=== PATIENT | male | born 1970 | race Caucasian/White ===

== ENCOUNTER 2020-03-21 14:14 | Inpatient (IN) | payer MEDICAID, OTHER ==
[~2020-03-21] VITALS: Ht 170.2 cm; Wt 112.0 kg
[2020-03-21] MEDS ORDERED: CHLO25TA2 PO (14:20)
[2020-03-21 15:13] LABS: CHLORIDE 77 mEq/L (98-107)
[2020-03-21 15:17] LABS: ETHANOL BLOOD < 10 mg/dL
[2020-03-21 15:23] LABS: BASOPHILS % 0.7 % (0.0-2.0); EOSINOPHILS % 0.8 % (0.0-5.0); LYMPHOCYTES % 9.8 % (20.0-50.0); MEAN CORPUSCULAR HEMOGLOBIN 31.6 pg (28.0-32.0); MEAN CORPUSCULAR VOLUME 91.6 fL (80.0-94.0); MEAN PLATELET VOLUME 7.4 fl (7.4-10.4); MONOCYTES % 14.3 % (2.0-8.0); NEUTROPHILS % 74.4 % (40.0-76.0); PLATELET 153 x1000/uL (130-400); RED BLOOD CELL COUNT 3.49 mill/uL (4.7-6.1); RED CELL DISTRIBUTION WIDTH 14.3 % (11.6-14.6)
[2020-03-21 15:26] LABS: INR 1.5; PROTHROMBIN TIME 15.8 sec (9.6-11.0)
[2020-03-21] MEDS ORDERED: SODIUM CHLORIDE 0.9% 1,000 ML IV ONE (15:30)
[2020-03-21] MEDS ORDERED: ONDANSETRON HCL 4MG/2ML INJ IV PRN (18:30)
[2020-03-21] MEDS ORDERED: MORPHINE SULFATE 2 MG/ML CPJ (NOT FOR IM USE) IV PRN (18:30)
[2020-03-21] MEDS ORDERED: LORAZEPAM 2MG/ML CPJ IV PRN (18:30)
[2020-03-21] MEDS ORDERED: HYDRALAZINE 20MG/ML VIAL IV PRN (18:30)
[2020-03-21] MEDS ORDERED: DIPHENHYDRAMINE 50MG/ML VIAL IV PRN (18:30)
[2020-03-21] MEDS ORDERED: GUAIFENESIN 200MG/10ML SUGAR FREE UDC PO PRN (18:30)
[2020-03-21] MEDS ORDERED: ACETAMINOPHEN 325MG TABLET PO PRN (18:30)
[2020-03-21] MEDS ORDERED: HYDROCODONE/ACETAMINOPHEN 10/325MG TABLET PO PRN (18:30)
[2020-03-21] MEDS ORDERED: MAGNESIUM/ALUMINUM HYDROXIDE/SIMETHICONE 30ML UDC PO PRN (18:30)
[2020-03-21] MEDS ORDERED: IPRATROPIUM/ALBUTEROL 0.5-3(2.5)MG/3ML NEB HHN PRN (18:30)
[2020-03-21] MEDS ORDERED: CLONIDINE 0.1MG TABLET PO PRN (18:30)
[2020-03-21] MEDS ORDERED: DOCUSATE SODIUM 100MG CAPSULE PO PRN (18:30)
[2020-03-21] MEDS ORDERED: POTASSIUM CHLORIDE INJ 40 MEQ in DEXT 5% WATER 250 ML IV ONE (20:00)
[2020-03-21 20:01] LABS: HEPATITIS B SURFACE ANTIGEN NEGATIVE
[2020-03-21] MEDS: SODIUM CHLORIDE 0.9% 1,000 ML IV SCH (20:09)
[2020-03-21 20:31] LABS: HEPATITIS A AB IGM NEGATIVE (NEGATIVE)
[2020-03-21] MEDS: SODIUM CHLORIDE 0.9% INJ 3ML FLUSH IVF SCH (22:00)
[2020-03-22] MEDS ORDERED: KCL 20MEQ/100ML PREMIX 100 ML IV ONE
[2020-03-22 00:20] LABS: CREATINE KINASE 172 IU/L (39-308)
[2020-03-22 00:21] LABS: CREATINE KINASE MB FRACTION 2.8 ng/mL (0.5-3.6)
[2020-03-22 04:38] LABS: CHLORIDE 81 mEq/L (98-107); HEMATOCRIT. 31.8 % (42.0-52.0); HEMOGLOBIN. 10.7 g/dL (14.0-18.0); MEAN CORPUSCULAR HEMOGLOBIN 31.2 pg (28.0-32.0); MEAN CORPUSCULAR VOLUME 92.8 fL (80.0-94.0); MEAN PLATELET VOLUME 7.4 fl (7.4-10.4); PLATELET 131 x1000/uL (130-400); RED BLOOD CELL COUNT 3.43 mill/uL (4.7-6.1); RED CELL DISTRIBUTION WIDTH 14.2 % (11.6-14.6)
[2020-03-22 04:45] LABS: CREATINE KINASE 169 IU/L (39-308)
[2020-03-22 04:47] LABS: CREATINE KINASE MB FRACTION 2.4 ng/mL (0.5-3.6)
[2020-03-22] MEDS: SODIUM CHLORIDE 0.9% INJ 3ML FLUSH IVF SCH ×3 (06:04→22:00)
[2020-03-22] MEDS ORDERED: POTASSIUM CHLORIDE INJ 40 MEQ in SODIUM CHLORIDE 0.9% 250 ML IV NR (06:30)
[2020-03-22 07:21] LABS: PLATELET ESTIMATE NORMAL
[2020-03-22] MEDS ORDERED: LIDOCAINE HCL 1% 20ML VIAL (Pyxis) INJ ONE (07:57)
[2020-03-22] MEDS ORDERED: SODIUM BICARBONATE 4% (2.4MEQ) 5ML VIAL IV ONE (07:57)
[2020-03-22 10:10] VITALS: BP 128/71
[2020-03-22 10:15] VITALS: BP 128/71
[2020-03-22] MEDS ORDERED: ZINC25CA PO (11:44)
[2020-03-22 12:00] VITALS: BP 136/70
[2020-03-22 13:02] LABS: CHLORIDE 83 mEq/L (98-107)
[2020-03-22] MEDS: SODIUM CHLORIDE 0.9% 1,000 ML IV SCH (13:41)
[2020-03-22 16:00] VITALS: BP 108/56
[2020-03-22 20:00] VITALS: BP 108/51
[2020-03-23] VITALS: BP 131/74
[2020-03-23 04:00] VITALS: BP 124/76
[2020-03-23] MEDS: SODIUM CHLORIDE 0.9% INJ 3ML FLUSH IVF SCH ×3 (05:55→16:06)
[2020-03-23 07:17] LABS: BASOPHILS % 1.3 % (0.0-2.0); EOSINOPHILS % 1.1 % (0.0-5.0); HEMATOCRIT. 30.3 % (42.0-52.0); HEMOGLOBIN. 10.5 g/dL (14.0-18.0); LYMPHOCYTES % 13.3 % (20.0-50.0); MEAN CORPUSCULAR HEMOGLOBIN 31.7 pg (28.0-32.0); MEAN CORPUSCULAR VOLUME 91.5 fL (80.0-94.0); MONOCYTES % 14.5 % (2.0-8.0); NEUTROPHILS % 69.8 % (40.0-76.0); PLATELET 111 x1000/uL (130-400); RED BLOOD CELL COUNT 3.31 mill/uL (4.7-6.1); RED CELL DISTRIBUTION WIDTH 14.1 % (11.6-14.6)
[2020-03-23 08:00] VITALS: BP 129/74
[2020-03-23 08:06] LABS: CHLORIDE 85 mEq/L (98-107)
[2020-03-23 08:15] LABS: PHOSPHORUS 1.3 mg/dL (2.5-4.9)
[2020-03-23] MEDS: LACTULOSE 20G/30ML UDC PO SCH ×3 (10:45→17:00)
[2020-03-23] MEDS ORDERED: POTASSIUM CHLORIDE 20MEQ TABLET SR PO SCH (11:45)
[2020-03-23 12:00] VITALS: BP 133/81
[2020-03-23] MEDS: SODIUM CHLORIDE 0.9% 1,000 ML IV SCH (12:00)
[2020-03-23 16:00] VITALS: BP 128/81
[2020-03-23 20:00] VITALS: BP 133/73
[2020-03-24] VITALS: BP 112/76
[2020-03-24 04:00] VITALS: BP 113/72
[2020-03-24] MEDS: SODIUM CHLORIDE 0.9% INJ 3ML FLUSH IVF SCH ×2 (06:20→14:23)
[2020-03-24 08:00] VITALS: BP 137/85
[2020-03-24] MEDS: SODIUM CHLORIDE 0.9% 1,000 ML IV SCH (11:08)
[2020-03-24] MEDS: LACTULOSE 20G/30ML UDC PO SCH ×3 (11:13→17:00)
[2020-03-24 12:00] VITALS: BP 143/88
[2020-03-24 18:14] VITALS: BP 117/80
== END 2020-03-24 19:10 | disposition home or self-care (01) | DRG 280 ==
LOC: EDBD → ER 14:14 → 6WST 17:25 → EDBEDREQTM 17:32 → ENRESERV 03-22 07:53
PROVIDERS: ADMIT Internal Medicine; ATTEND Internal Medicine
PROC: 0W9G3ZZ Drainage of Peritoneal Cavity, Percutaneous Approach (ICD-10-PCS; principal; 2020-03-22)
DX: K70.31 Alcoholic cirrhosis of liver with ascites (principal); K72.90 Hepatic failure, unspecified without coma; D68.9 Coagulation defect, unspecified; E46 Unspecified protein-calorie malnutrition; D64.9 Anemia, unspecified; E87.1 Hypo-osmolality and hyponatremia; E87.6 Hypokalemia; I10 Essential (primary) hypertension; I25.10 Atherosclerotic heart disease of native coronary artery without angina pectoris; K21.9 Gastro-esophageal reflux disease without esophagitis; Z79.899 Other long term (current) drug therapy; Z68.28 Body mass index [BMI] 28.0-28.9, adult; Z71.41 Alcohol abuse counseling and surveillance of alcoholic; Y90.9 Presence of alcohol in blood, level not specified; F10.20 Alcohol dependence, uncomplicated
CPT/HCPCS: 36415; 49083; 74176; 80048; 80053; 80076; 80320; 82105; 82140; 82550; 82553; 82607; 82746; 83615; 83735; 84100; 84484; 85025; 86705; 86709; 86803; 87075; 87340; 93005; 93970; 99285; J2270; J2405; J3480; J3490; J7030; J7050; J7060; G0480

== ENCOUNTER 2020-04-13 13:59 | Inpatient (IN) | payer MEDICAID, OTHER ==
[~2020-04-13] VITALS: Ht 170.2 cm; Wt 103.0 kg
[~2020-04-13 13:59] MED LIST: CHLO25TA2 PO; ZINC25CA PO
[2020-04-13] MEDS ORDERED: ACETAMINOPHEN 325MG TABLET PO ONE (14:30)
[2020-04-13] MEDS ORDERED: LIDOCAINE HCL/PF 1% 10 MG/ML 5ML VIAL IJ ONE (14:30)
[2020-04-13] MEDS ORDERED: VANCOMYCIN 1 G PREMIX 200 ML IV SCH (14:30)
[2020-04-13] MEDS ORDERED: PIPERACILLIN/TAZ 3.375G PREMIX 50 ML IV ONE (14:30)
[2020-04-13 15:19] LABS: BASOPHILS % 0.4 % (0.0-2.0); HEMATOCRIT. 33.8 % (42.0-52.0); HEMOGLOBIN. 11.6 g/dL (14.0-18.0); LYMPHOCYTES % 10.1 % (20.0-50.0); MEAN CORPUSCULAR HEMOGLOBIN 30.7 pg (28.0-32.0); MEAN PLATELET VOLUME 7.5 fl (7.4-10.4); MONOCYTES % 5.8 % (2.0-8.0); NEUTROPHILS % 83.7 % (40.0-76.0); PLATELET 223 x1000/uL (130-400); RED BLOOD CELL COUNT 3.76 mill/uL (4.7-6.1); RED CELL DISTRIBUTION WIDTH 16.2 % (11.6-14.6)
[2020-04-13 15:22] LABS: CHLORIDE 96 mEq/L (98-107); INR 1.3; PARTIAL THROMBOPLASTIN TIME 33.6 sec (23.4-31.0); PROTHROMBIN TIME 14.4 sec (9.6-11.0)
[2020-04-13] MEDS ORDERED: MORPHINE SULFATE 4 MG/ML CPJ (NOT FOR IM USE) IV STA (15:53)
[2020-04-13] MEDS ORDERED: ONDANSETRON HCL 4MG/2ML INJ IV STA (15:53)
[2020-04-13 18:20] VITALS: BP 152/90
[2020-04-13] MEDS ORDERED: MULT-1146 MT (19:00)
[2020-04-13] MEDS ORDERED: LACT10SO30 MT (19:00)
[2020-04-13] MEDS ORDERED: THIA100T88 PO (19:00)
[2020-04-13 20:00] VITALS: BP 143/97
[2020-04-13 20:10] VITALS: BP 159/89
[2020-04-13] MEDS ORDERED: MORPHINE SULFATE 2 MG/ML CPJ (NOT FOR IM USE) IV PRN (21:15)
[2020-04-13] MEDS ORDERED: ONDANSETRON HCL 4MG/2ML INJ IV PRN (21:15)
[2020-04-13] MEDS ORDERED: DEXT 5%/0.45% NACL 1000ML 1,000 ML IV SCH (22:30)
[2020-04-14] VITALS: BP 127/98
[2020-04-14 04:00] VITALS: BP 134/91
[2020-04-14 06:42] LABS: INR 1.4; PROTHROMBIN TIME 15.4 sec (9.6-11.0)
[2020-04-14 06:45] LABS: BASOPHILS % 0.6 % (0.0-2.0); EOSINOPHILS % 1.2 % (0.0-5.0); HEMOGLOBIN. 10.6 g/dL (14.0-18.0); LYMPHOCYTES % 13.9 % (20.0-50.0); MEAN CORPUSCULAR HEMOGLOBIN 30.6 pg (28.0-32.0); MEAN CORPUSCULAR VOLUME 89.5 fL (80.0-94.0); MEAN PLATELET VOLUME 7.7 fl (7.4-10.4); MONOCYTES % 13.5 % (2.0-8.0); NEUTROPHILS % 70.8 % (40.0-76.0); PLATELET 173 x1000/uL (130-400); RED BLOOD CELL COUNT 3.47 mill/uL (4.7-6.1)
[2020-04-14 08:00] VITALS: BP 128/85
[2020-04-14 08:20] LABS: CHLORIDE 97 mEq/L (98-107)
[2020-04-14] MEDS: PANTOPRAZOLE SODIUM 40 MG/VIAL IV SCH (08:29)
[2020-04-14 12:00] VITALS: BP 143/89
[2020-04-14] MEDS: POTASSIUM CHLORIDE 20MEQ TABLET SR PO SCH (12:02)
[2020-04-14] MEDS: PIPERACILLIN/TAZOBACTAM 3.375 G in DEXT 5% WATER 100 ML IV SCH ×2 (13:35→17:22)
[2020-04-14 14:55] LABS: *AMPHETAMINES SCREEN URINE NEGATIVE (NEGATIVE); *BARBITURATES SCREEN URINE NEGATIVE (NEGATIVE); *BENZODIAZEPINES SCREEN URINE NEGATIVE (NEGATIVE); *COCAINE SCREEN URINE NEGATIVE (NEGATIVE); METHADONE URINE SCREEN NEGATIVE (NEGATIVE)
[2020-04-14 14:56] LABS: CANNABINOID URINE SCREEN NEGATIVE (NEGATIVE); OPIATES URINE SCREEN PRESUMTIVE POSITIVE (NEGATIVE); PHENCYCLIDINE URINE SCREEN NEGATIVE (NEGATIVE)
[2020-04-14 16:00] VITALS: BP 146/95
[2020-04-14 20:00] VITALS: BP 133/83
[2020-04-15] VITALS: BP 142/86
[2020-04-15] MEDS: PIPERACILLIN/TAZOBACTAM 3.375 G in DEXT 5% WATER 100 ML IV SCH ×5 (00:36→23:00)
[2020-04-15 04:00] VITALS: BP 122/64
[2020-04-15 04:52] LABS: CLARITY URINE CLEAR (CLEAR); COLOR URINE DARK YELLOW (YELLOW); KETONES URINE NEGATIVE (NEGATIVE); LEUKOCYTE ESTERASE URINE TRACE (NEGATIVE); NITRITE URINE NEGATIVE (NEGATIVE); OCCULT BLOOD URINE 1+ (NEGATIVE); PROTEIN URINE TRACE (NEGATIVE); SPECIFIC GRAVITY URINE 1.027 (1.005-1.030)
[2020-04-15 08:00] VITALS: BP 127/85
[2020-04-15] MEDS: POTASSIUM CHLORIDE 20MEQ TABLET SR PO SCH (08:24)
[2020-04-15] MEDS: PANTOPRAZOLE SODIUM 40 MG/VIAL IV SCH (08:24)
[2020-04-15 12:00] VITALS: BP 132/89
[2020-04-15 16:00] VITALS: BP 141/85
[2020-04-15] MEDS: LACTULOSE 20G/30ML UDC PO SCH (17:12)
[2020-04-16] VITALS: BP 117/76
[2020-04-16 03:44] VITALS: BP 144/93
[2020-04-16] MEDS: PIPERACILLIN/TAZOBACTAM 3.375 G in DEXT 5% WATER 100 ML IV SCH ×3 (05:47→18:00)
[2020-04-16 08:00] VITALS: BP 124/81
[2020-04-16] MEDS: POTASSIUM CHLORIDE 20MEQ TABLET SR PO SCH (08:55)
[2020-04-16] MEDS: PANTOPRAZOLE SODIUM 40 MG/VIAL IV SCH (08:55)
[2020-04-16] MEDS: LACTULOSE 20G/30ML UDC PO SCH ×2 (08:59→17:00)
[2020-04-16] MEDS ORDERED: SODIUM BICARBONATE 4% (2.4MEQ) 5ML VIAL IV ONE (11:00)
[2020-04-16] MEDS ORDERED: LIDOCAINE HCL 1% 20ML VIAL (Pyxis) INJ ONE (11:00)
[2020-04-16 12:00] VITALS: BP 121/75
[2020-04-16 13:26] LABS: INR 1.3
[2020-04-16 16:00] VITALS: BP 128/82
[2020-04-16 20:00] VITALS: BP 120/75
[2020-04-17] VITALS: BP 125/72
[2020-04-17] MEDS: PIPERACILLIN/TAZOBACTAM 3.375 G in DEXT 5% WATER 100 ML IV SCH ×2 (00:45→06:07)
[2020-04-17 04:00] VITALS: BP 127/70
[2020-04-17 06:46] LABS: HEMATOCRIT. 30.8 % (42.0-52.0); HEMOGLOBIN. 10.6 g/dL (14.0-18.0); MEAN CORPUSCULAR HEMOGLOBIN 30.6 pg (28.0-32.0); MEAN CORPUSCULAR VOLUME 89.2 fL (80.0-94.0); MEAN PLATELET VOLUME 7.4 fl (7.4-10.4); PLATELET 174 x1000/uL (130-400); RED BLOOD CELL COUNT 3.45 mill/uL (4.7-6.1); RED CELL DISTRIBUTION WIDTH 15.8 % (11.6-14.6)
[2020-04-17 06:53] LABS: CHLORIDE 99 mEq/L (98-107)
[2020-04-17 08:00] VITALS: BP 123/75
[2020-04-17] MEDS: PANTOPRAZOLE SODIUM 40 MG/VIAL IV SCH (08:59)
[2020-04-17] MEDS: POTASSIUM CHLORIDE 20MEQ TABLET SR PO SCH (08:59)
[2020-04-17] MEDS: LACTULOSE 20G/30ML UDC PO SCH (09:05)
[2020-04-17 11:33] VITALS: BP 128/82
[2020-04-17 12:00] VITALS: BP 125/82
[2020-04-17 12:40] LABS: PLATELET ESTIMATE NORMAL
== END 2020-04-17 13:07 | disposition home or self-care (01) | DRG 280 ==
LOC: EDBD → ER 13:59 → EDBEDREQ 16:04 → EDBEDREQTM 16:04 → ENRESERV 16:48 → 7EST 17:38 → 6WST 04-16 03:13
PROVIDERS: ADMIT Hospitalist; ATTEND Hospitalist
PROC: 0W9G3ZZ Drainage of Peritoneal Cavity, Percutaneous Approach (ICD-10-PCS; principal; 2020-04-16)
DX: K70.31 Alcoholic cirrhosis of liver with ascites (principal); J96.00 Acute respiratory failure, unspecified whether with hypoxia or hypercapnia; E43 Unspecified severe protein-calorie malnutrition; D68.4 Acquired coagulation factor deficiency; E87.2 Acidosis; I10 Essential (primary) hypertension; Z20.828 Contact with and (suspected) exposure to other viral communicable diseases; E87.6 Hypokalemia; E87.1 Hypo-osmolality and hyponatremia; J98.11 Atelectasis; E88.09 Other disorders of plasma-protein metabolism, not elsewhere classified; K21.9 Gastro-esophageal reflux disease without esophagitis; D64.9 Anemia, unspecified; F10.10 Alcohol abuse, uncomplicated; Z60.2 Problems related to living alone
CPT/HCPCS: 36415; 49083; 71045; 80048; 80053; 80305; 80361; 81003; 82140; 82693; 83605; 83880; 84145; 84484; 85025; 93005; 96365; 99291; C9113; J2270; J2405; J2543; J3370; J3490; J7060; U0003-CS

== ENCOUNTER 2020-04-28 08:51 | Emergency (ER) | payer MEDICAID ==
[~2020-04-28] VITALS: Ht 170.2 cm; Wt 101.8 kg
[~2020-04-28 08:51] MED LIST changes: -CHLO25TA2 PO; +LACT10SO30 MT; +MULT-1146 MT; +THIA100T88 PO; -ZINC25CA PO
[2020-04-28 10:39] LABS: BASOPHILS % 1.2 % (0.0-2.0); HEMATOCRIT. 30.7 % (42.0-52.0); HEMOGLOBIN. 10.8 g/dL (14.0-18.0); LYMPHOCYTES % 25.2 % (20.0-50.0); MEAN CORPUSCULAR HEMOGLOBIN 31.4 pg (28.0-32.0); MEAN CORPUSCULAR VOLUME 89.2 fL (80.0-94.0); MEAN PLATELET VOLUME 7.4 fl (7.4-10.4); MONOCYTES % 11.6 % (2.0-8.0); PLATELET 184 x1000/uL (130-400); RED BLOOD CELL COUNT 3.44 mill/uL (4.7-6.1); RED CELL DISTRIBUTION WIDTH 17.7 % (11.6-14.6)
[2020-04-28 10:46] LABS: CHLORIDE 99 mEq/L (98-107)
[2020-04-28 10:47] LABS: INR 1.2; PROTHROMBIN TIME 13.2 sec (9.6-11.0)
[2020-04-28 10:50] LABS: ETHANOL BLOOD < 10 mg/dL
[2020-04-28] MEDS ORDERED: LIDOCAINE HCL 1% 20ML VIAL (Pyxis) INJ ONE (11:40)
[2020-04-28] MEDS ORDERED: SODIUM BICARBONATE 4% (2.4MEQ) 5ML VIAL IV ONE (11:40)
[2020-04-28] MEDS ORDERED: CEFTRIAXONE 2 G in DEXTROSE 5% WATER 50 ML IV NR (15:00)
[2020-04-28] MEDS ORDERED: CEFTRIAXONE 2 G PREMIX 50 ML IV ONE (15:00)
[2020-04-28 15:30] VITALS: BP 121/67
== END 2020-04-28 16:40 | disposition home or self-care (01) ==
LOC: ER 12:17
DX: K70.31 Alcoholic cirrhosis of liver with ascites (principal); R06.82 Tachypnea, not elsewhere classified; K21.9 Gastro-esophageal reflux disease without esophagitis; I10 Essential (primary) hypertension; Z87.891 Personal history of nicotine dependence
CPT/HCPCS: 36415; 49083; 71045; 80053; 80320; 83690; 83880; 84484; 85025; 85610; 86850; 86900; 86901; 93005; 96365; 99285; J0696; J3490; J7060; Z7610; G0480

== ENCOUNTER 2020-05-06 06:49 | Emergency (ER) | payer MEDICAID ==
[~2020-05-06] VITALS: Ht 167.6 cm; Wt 98.4 kg
[2020-05-06] MEDS ORDERED: SODIUM CHLORIDE 0.9% 1,000 ML IV ONE (08:12)
[2020-05-06 08:47] LABS: EOSINOPHILS % 1.5 % (0.0-5.0); HEMATOCRIT. 32.1 % (42.0-52.0); HEMOGLOBIN. 11.1 g/dL (14.0-18.0); LYMPHOCYTES % 25.9 % (20.0-50.0); MEAN CORPUSCULAR HEMOGLOBIN 30.8 pg (28.0-32.0); MEAN CORPUSCULAR VOLUME 89.2 fL (80.0-94.0); MEAN PLATELET VOLUME 7.4 fl (7.4-10.4); NEUTROPHILS % 59.6 % (40.0-76.0); PLATELET 168 x1000/uL (130-400); RED CELL DISTRIBUTION WIDTH 18.4 % (11.6-14.6)
[2020-05-06 08:52] LABS: INR 1.2; PARTIAL THROMBOPLASTIN TIME 31.7 sec (23.4-31.0); PROTHROMBIN TIME 12.9 sec (9.6-11.0)
[2020-05-06 09:23] LABS: CHLORIDE 95 mEq/L (98-107)
[2020-05-06] MEDS ORDERED: LIDOCAINE HCL 1% 20ML VIAL (Pyxis) INJ ONE (10:22)
[2020-05-06] MEDS ORDERED: SODIUM BICARBONATE 4% (2.4MEQ) 5ML VIAL IV ONE (10:22)
[2020-05-06 12:58] VITALS: BP 113/66
== END 2020-05-06 13:05 | disposition home or self-care (01) ==
LOC: ER 06:49
DX: R14.0 Abdominal distension (gaseous) (principal); K21.9 Gastro-esophageal reflux disease without esophagitis; R94.31 Abnormal electrocardiogram [ECG] [EKG]; I10 Essential (primary) hypertension; Z79.899 Other long term (current) drug therapy; K72.90 Hepatic failure, unspecified without coma; Z76.0 Encounter for issue of repeat prescription
CPT/HCPCS: 36415; 49083; 71045; 80053; 85025; 85610; 85730; 93005; 99285; J3490; J7030; Z7610

== ENCOUNTER 2020-05-14 13:34 | Emergency (ER) | payer MEDICAID ==
[~2020-05-14] VITALS: Ht 170.2 cm; Wt 92.0 kg
[2020-05-14] MEDS ORDERED: SODIUM BICARBONATE 4% (2.4MEQ) 5ML VIAL IV ONE (14:58)
[2020-05-14] MEDS ORDERED: LIDOCAINE HCL 1% 20ML VIAL (Pyxis) INJ ONE (14:58)
[2020-05-14 15:15] LABS: BASOPHILS % 0.6 % (0.0-2.0); EOSINOPHILS % 1.1 % (0.0-5.0); HEMATOCRIT. 32.9 % (42.0-52.0); HEMOGLOBIN. 11.6 g/dL (14.0-18.0); LYMPHOCYTES % 19.9 % (20.0-50.0); MEAN CORPUSCULAR HEMOGLOBIN 32.1 pg (28.0-32.0); MEAN CORPUSCULAR VOLUME 90.9 fL (80.0-94.0); MEAN PLATELET VOLUME 7.6 fl (7.4-10.4); MONOCYTES % 13.3 % (2.0-8.0); NEUTROPHILS % 65.1 % (40.0-76.0); PLATELET 145 x1000/uL (130-400); RED BLOOD CELL COUNT 3.62 mill/uL (4.7-6.1); RED CELL DISTRIBUTION WIDTH 18.3 % (11.6-14.6)
[2020-05-14 15:21] LABS: CHLORIDE 94 mEq/L (98-107)
[2020-05-14 15:23] LABS: INR 1.2; PROTHROMBIN TIME 12.6 sec (9.6-11.0)
[2020-05-14 18:39] VITALS: BP 111/67
== END 2020-05-14 19:13 | disposition home or self-care (01) ==
LOC: ER 13:34
DX: R18.8 Other ascites (principal); K70.9 Alcoholic liver disease, unspecified; E87.8 Other disorders of electrolyte and fluid balance, not elsewhere classified; I10 Essential (primary) hypertension; K21.9 Gastro-esophageal reflux disease without esophagitis
CPT/HCPCS: 36415; 49083; 80053; 85025; 85610; 99284; J3490; Z7610

== ENCOUNTER 2020-05-21 07:54 | Emergency (ER) | payer MEDICAID ==
[~2020-05-21] VITALS: Ht 172.7 cm; Wt 75.0 kg
[2020-05-21 08:44] VITALS: BP 149/86
[2020-05-21 09:07] LABS: BASOPHILS % 0.9 % (0.0-2.0); EOSINOPHILS % 1.7 % (0.0-5.0); HEMATOCRIT. 34.4 % (42.0-52.0); HEMOGLOBIN. 11.9 g/dL (14.0-18.0); LYMPHOCYTES % 25.6 % (20.0-50.0); MEAN CORPUSCULAR HEMOGLOBIN 31.7 pg (28.0-32.0); MEAN CORPUSCULAR VOLUME 91.3 fL (80.0-94.0); MEAN PLATELET VOLUME 7.7 fl (7.4-10.4); MONOCYTES % 11.9 % (2.0-8.0); NEUTROPHILS % 59.9 % (40.0-76.0); PLATELET 148 x1000/uL (130-400); RED BLOOD CELL COUNT 3.77 mill/uL (4.7-6.1); RED CELL DISTRIBUTION WIDTH 17.6 % (11.6-14.6)
[2020-05-21 09:13] LABS: CHLORIDE 95 mEq/L (98-107)
[2020-05-21 09:20] LABS: INR 1.2; PROTHROMBIN TIME 12.4 sec (9.6-11.0)
[2020-05-21] MEDS ORDERED: LIDOCAINE HCL 1% 20ML VIAL (Pyxis) INJ ONE (09:57)
[2020-05-21] MEDS ORDERED: SODIUM BICARBONATE 4% (2.4MEQ) 5ML VIAL IV ONE (09:57)
== END 2020-05-21 12:24 | disposition home or self-care (01) ==
LOC: ER 07:54
DX: R18.8 Other ascites (principal); K21.9 Gastro-esophageal reflux disease without esophagitis; I10 Essential (primary) hypertension; K76.9 Liver disease, unspecified; F17.200 Nicotine dependence, unspecified, uncomplicated
CPT/HCPCS: 36415; 49083; 80053; 83690; 85025; 85610; 87070; 87075; 87205; 89050; 99285; J3490; Z7610

== ENCOUNTER 2020-05-28 07:35 | Emergency (ER) | payer MEDICAID ==
[~2020-05-28] VITALS: Ht 172.7 cm; Wt 88.0 kg
[2020-05-28 08:27] LABS: BASOPHILS % 0.9 % (0.0-2.0); EOSINOPHILS % 1.4 % (0.0-5.0); HEMATOCRIT. 33.6 % (42.0-52.0); HEMOGLOBIN. 11.6 g/dL (14.0-18.0); LYMPHOCYTES % 22.6 % (20.0-50.0); MEAN CORPUSCULAR HEMOGLOBIN 31.6 pg (28.0-32.0); MEAN CORPUSCULAR VOLUME 91.5 fL (80.0-94.0); MEAN PLATELET VOLUME 7.9 fl (7.4-10.4); MONOCYTES % 11.4 % (2.0-8.0); NEUTROPHILS % 63.7 % (40.0-76.0); PLATELET 156 x1000/uL (130-400); RED BLOOD CELL COUNT 3.67 mill/uL (4.7-6.1); RED CELL DISTRIBUTION WIDTH 16.3 % (11.6-14.6)
[2020-05-28 08:40] LABS: INR 1.1; PROTHROMBIN TIME 11.9 sec (9.6-11.0)
[2020-05-28 08:42] LABS: CHLORIDE 95 mEq/L (98-107)
[2020-05-28] MEDS ORDERED: LIDOCAINE HCL 1% 20ML VIAL (Pyxis) INJ ONE (12:00)
[2020-05-28] MEDS ORDERED: SODIUM BICARBONATE 4% (2.4MEQ) 5ML VIAL IV ONE (12:00)
[2020-05-28 15:56] VITALS: BP 110/69
== END 2020-05-28 15:59 | disposition home or self-care (01) ==
LOC: ER 07:35
DX: R18.8 Other ascites (principal); K21.9 Gastro-esophageal reflux disease without esophagitis; I12.9 Hypertensive chronic kidney disease with stage 1 through stage 4 chronic kidney disease, or unspecified chronic kidney disease; N18.9 Chronic kidney disease, unspecified
CPT/HCPCS: 36415; 49083; 80053; 83690; 85025; 85610; 87070; 87075; 87205; 89050; 99285; J3490; Z7610

== ENCOUNTER 2020-06-05 07:20 | Emergency (ER) | payer MEDICAID ==
[~2020-06-05] VITALS: Ht 172.7 cm; Wt 86.8 kg
[2020-06-05 08:47] LABS: CHLORIDE 97 mEq/L (98-107); HEMATOCRIT. 31.6 % (42.0-52.0); MEAN CORPUSCULAR VOLUME 91.7 fL (80.0-94.0); MEAN PLATELET VOLUME 7.4 fl (7.4-10.4); PLATELET 132 x1000/uL (130-400); RED BLOOD CELL COUNT 3.45 mill/uL (4.7-6.1); RED CELL DISTRIBUTION WIDTH 15.6 % (11.6-14.6)
[2020-06-05 08:54] LABS: INR 1.2; PROTHROMBIN TIME 12.3 sec (9.6-11.0)
[2020-06-05 09:19] LABS: PLATELET ESTIMATE NORMAL
[2020-06-05] MEDS ORDERED: LIDOCAINE HCL 1% 20ML VIAL (Pyxis) INJ ONE (10:55)
[2020-06-05] MEDS ORDERED: SODIUM BICARBONATE 4% (2.4MEQ) 5ML VIAL IV ONE (10:56)
[2020-06-05 13:00] VITALS: BP 138/71
== END 2020-06-05 13:24 | disposition home or self-care (01) ==
LOC: ER 07:20
DX: R18.8 Other ascites (principal); K74.60 Unspecified cirrhosis of liver; K21.9 Gastro-esophageal reflux disease without esophagitis; I10 Essential (primary) hypertension
CPT/HCPCS: 36415; 49083; 80053; 85025; 85610; 99285; J3490; Z7610

== ENCOUNTER 2020-06-12 08:02 | Emergency (ER) | payer MEDICAID ==
[~2020-06-12] VITALS: Ht 170.2 cm; Wt 83.0 kg
[2020-06-12] MEDS ORDERED: METOCLOPRAMIDE HCL 10MG TABLET PO ONE (09:00)
[2020-06-12] MEDS ORDERED: IBUPROFEN 600MG TABLET PO ONE (09:00)
[2020-06-12 09:17] LABS: BASOPHILS % 1.1 % (0.0-2.0); EOSINOPHILS % 0.9 % (0.0-5.0); HEMATOCRIT. 33.5 % (42.0-52.0); HEMOGLOBIN. 11.7 g/dL (14.0-18.0); LYMPHOCYTES % 21.5 % (20.0-50.0); MEAN CORPUSCULAR HEMOGLOBIN 31.9 pg (28.0-32.0); MEAN CORPUSCULAR VOLUME 91.4 fL (80.0-94.0); MEAN PLATELET VOLUME 7.4 fl (7.4-10.4); MONOCYTES % 12.6 % (2.0-8.0); NEUTROPHILS % 63.9 % (40.0-76.0); PLATELET 141 x1000/uL (130-400); RED BLOOD CELL COUNT 3.67 mill/uL (4.7-6.1); RED CELL DISTRIBUTION WIDTH 14.8 % (11.6-14.6)
[2020-06-12 09:22] LABS: CHLORIDE 97 mEq/L (98-107)
[2020-06-12 09:26] LABS: INR 1.1; PROTHROMBIN TIME 11.8 sec (9.6-11.0)
[2020-06-12] MEDS ORDERED: LIDOCAINE HCL 1% 20ML VIAL (Pyxis) INJ ONE (09:40)
[2020-06-12] MEDS ORDERED: SODIUM BICARBONATE 4% (2.4MEQ) 5ML VIAL IV ONE (09:40)
[2020-06-12 11:46] VITALS: BP 120/86
== END 2020-06-12 12:15 | disposition home or self-care (01) ==
LOC: ER 08:02
DX: R18.8 Other ascites (principal); Z76.0 Encounter for issue of repeat prescription; I10 Essential (primary) hypertension; Z86.19 Personal history of other infectious and parasitic diseases
CPT/HCPCS: 36415; 49083; 80053; 83690; 85025; 85610; 87070; 87075; 87205; 89050; 93005; 99285; J3490; Z7610

== ENCOUNTER 2020-06-19 07:32 | Emergency (ER) | payer MEDICAID ==
[~2020-06-19] VITALS: Ht 170.2 cm; Wt 85.0 kg
[2020-06-19 08:19] LABS: INR 1.1; PARTIAL THROMBOPLASTIN TIME 31.3 sec (23.4-31.0); PROTHROMBIN TIME 11.9 sec (9.6-11.0)
[2020-06-19 08:23] LABS: BASOPHILS % 0.7 % (0.0-2.0); EOSINOPHILS % 1.2 % (0.0-5.0); HEMATOCRIT. 35.5 % (42.0-52.0); HEMOGLOBIN. 12.3 g/dL (14.0-18.0); LYMPHOCYTES % 21.8 % (20.0-50.0); MEAN CORPUSCULAR HEMOGLOBIN 31.5 pg (28.0-32.0); MEAN PLATELET VOLUME 7.7 fl (7.4-10.4); NEUTROPHILS % 64.3 % (40.0-76.0); PLATELET 174 x1000/uL (130-400); RED CELL DISTRIBUTION WIDTH 14.4 % (11.6-14.6)
[2020-06-19] MEDS ORDERED: SODIUM BICARBONATE 4% (2.4MEQ) 5ML VIAL IV ONE (09:09)
[2020-06-19] MEDS ORDERED: LIDOCAINE HCL 1% 20ML VIAL (Pyxis) INJ ONE (09:09)
[2020-06-19 11:00] VITALS: BP 106/63
== END 2020-06-19 11:53 | disposition home or self-care (01) ==
LOC: ER 07:32
DX: R18.8 Other ascites (principal); K74.60 Unspecified cirrhosis of liver; I10 Essential (primary) hypertension
CPT/HCPCS: 36415; 49083; 85025; 85610; 85730; 99285; J3490; Z7610

== ENCOUNTER 2020-07-03 07:41 | Emergency (ER) | payer MEDICAID ==
[~2020-07-03] VITALS: Ht 170.2 cm; Wt 77.0 kg
[2020-07-03 08:44] LABS: BASOPHILS % 0.8 % (0.0-2.0); EOSINOPHILS % 1.4 % (0.0-5.0); HEMATOCRIT. 34.7 % (42.0-52.0); LYMPHOCYTES % 19.7 % (20.0-50.0); MEAN CORPUSCULAR HEMOGLOBIN 31.1 pg (28.0-32.0); MEAN CORPUSCULAR VOLUME 89.8 fL (80.0-94.0); MEAN PLATELET VOLUME 7.4 fl (7.4-10.4); MONOCYTES % 10.9 % (2.0-8.0); NEUTROPHILS % 67.2 % (40.0-76.0); PLATELET 138 x1000/uL (130-400); RED BLOOD CELL COUNT 3.86 mill/uL (4.7-6.1); RED CELL DISTRIBUTION WIDTH 13.9 % (11.6-14.6)
[2020-07-03 08:50] LABS: CHLORIDE 93 mEq/L (98-107)
[2020-07-03 08:56] LABS: INR 1.1; PROTHROMBIN TIME 11.8 sec (9.6-11.0)
[2020-07-03 11:50] VITALS: BP 110/80
[2020-07-03] MEDS ORDERED: LIDOCAINE HCL 1% 20ML VIAL (Pyxis) INJ ONE (13:08)
== END 2020-07-03 12:04 | disposition home or self-care (01) ==
LOC: ER 07:41
DX: R18.8 Other ascites (principal); I10 Essential (primary) hypertension; K74.60 Unspecified cirrhosis of liver
CPT/HCPCS: 36415; 49083; 80053; 85025; 85610; 99285; J3490; Z7610

== ENCOUNTER 2020-07-11 07:47 | Emergency (ER) | payer MEDICAID ==
[~2020-07-11] VITALS: Ht 170.2 cm; Wt 83.8 kg
[2020-07-11] MEDS ORDERED: CHLO50TA PO (08:01)
[2020-07-11 09:17] LABS: INR 1.1; PARTIAL THROMBOPLASTIN TIME 29.9 sec (23.4-31.0); PROTHROMBIN TIME 11.8 sec (9.6-11.0)
[2020-07-11 10:03] LABS: HEMATOCRIT 33.3 % (42.0-52.0); HEMOGLOBIN 11.5 g/dL (14.0-18.0); MEAN CORPUSCULAR HEMOGLOBIN 30.9 pg (28.0-32.0); MEAN CORPUSCULAR VOLUME 89.4 fL (80.0-94.0); PLATELET 134 x1000/uL (130-400); RED BLOOD CELL COUNT 3.73 mill/uL (4.7-6.1)
[2020-07-11] MEDS ORDERED: SODIUM BICARBONATE 4% (2.4MEQ) 5ML VIAL IV ONE (10:12)
[2020-07-11] MEDS ORDERED: LIDOCAINE HCL 1% 20ML VIAL (Pyxis) INJ ONE (10:12)
[2020-07-11 14:00] VITALS: BP 109/57
== END 2020-07-11 13:50 | disposition home or self-care (01) ==
LOC: ER 07:47
DX: R18.8 Other ascites (principal); I10 Essential (primary) hypertension; Z79.899 Other long term (current) drug therapy; Z98.890 Other specified postprocedural states
CPT/HCPCS: 36415; 49083; 85027; 85610; 85730; 93005; 99285; J3490; Z7610

== ENCOUNTER 2020-07-17 07:20 | Emergency (ER) | payer MEDICAID ==
[~2020-07-17] VITALS: Ht 170.2 cm; Wt 81.2 kg
[~2020-07-17 07:20] MED LIST changes: +CHLO50TA PO
[2020-07-17 08:48] LABS: CHLORIDE 95 mEq/L (98-107)
[2020-07-17 08:53] LABS: BASOPHILS % 0.9 % (0.0-2.0); EOSINOPHILS % 1.5 % (0.0-5.0); HEMATOCRIT. 35.7 % (42.0-52.0); HEMOGLOBIN. 12.1 g/dL (14.0-18.0); LYMPHOCYTES % 19.3 % (20.0-50.0); MEAN CORPUSCULAR HEMOGLOBIN 30.5 pg (28.0-32.0); MEAN CORPUSCULAR VOLUME 89.7 fL (80.0-94.0); MEAN PLATELET VOLUME 7.5 fl (7.4-10.4); MONOCYTES % 11.4 % (2.0-8.0); NEUTROPHILS % 66.9 % (40.0-76.0); PLATELET 153 x1000/uL (130-400); RED BLOOD CELL COUNT 3.97 mill/uL (4.7-6.1); RED CELL DISTRIBUTION WIDTH 14.4 % (11.6-14.6)
[2020-07-17 09:08] LABS: INR 1.1; PROTHROMBIN TIME 11.9 sec (9.6-11.0)
[2020-07-17] MEDS ORDERED: LIDOCAINE HCL 1% 20ML VIAL (Pyxis) INJ ONE (10:58)
[2020-07-17] MEDS ORDERED: SODIUM BICARBONATE 4% (2.4MEQ) 5ML VIAL IV ONE (10:58)
[2020-07-17 14:30] VITALS: BP 98/69
== END 2020-07-17 14:35 | disposition home or self-care (01) ==
LOC: ER 07:20
DX: R18.8 Other ascites (principal); I10 Essential (primary) hypertension; K74.60 Unspecified cirrhosis of liver
CPT/HCPCS: 36415; 49083; 80053; 83690; 85025; 85610; 87070; 87075; 87205; 89050; 99285; J3490; Z7610

== ENCOUNTER 2020-07-24 07:13 | Emergency (ER) | payer MEDICAID ==
[~2020-07-24] VITALS: Ht 170.2 cm; Wt 81.0 kg
[2020-07-24 08:07] LABS: BASOPHILS % 0.8 % (0.0-2.0); EOSINOPHILS % 1.7 % (0.0-5.0); HEMATOCRIT. 35.9 % (42.0-52.0); HEMOGLOBIN. 12.3 g/dL (14.0-18.0); LYMPHOCYTES % 17.6 % (20.0-50.0); MEAN CORPUSCULAR HEMOGLOBIN 31.1 pg (28.0-32.0); MEAN CORPUSCULAR VOLUME 90.7 fL (80.0-94.0); MEAN PLATELET VOLUME 7.6 fl (7.4-10.4); MONOCYTES % 11.9 % (2.0-8.0); PLATELET 157 x1000/uL (130-400); RED BLOOD CELL COUNT 3.96 mill/uL (4.7-6.1); RED CELL DISTRIBUTION WIDTH 14.8 % (11.6-14.6)
[2020-07-24 08:15] LABS: CHLORIDE 94 mEq/L (98-107)
[2020-07-24] MEDS ORDERED: SODIUM BICARBONATE 4% (2.4MEQ) 5ML VIAL IV ONE (09:38)
[2020-07-24] MEDS ORDERED: LIDOCAINE HCL 1% 20ML VIAL (Pyxis) INJ ONE (09:38)
[2020-07-24 11:52] LABS: INR 1.1; PROTHROMBIN TIME 11.6 sec (9.6-11.0)
[2020-07-24 17:14] VITALS: BP 122/76
== END 2020-07-24 17:16 | disposition home or self-care (01) ==
LOC: ER 07:13
DX: R18.8 Other ascites (principal); K74.60 Unspecified cirrhosis of liver; E87.8 Other disorders of electrolyte and fluid balance, not elsewhere classified; I10 Essential (primary) hypertension
CPT/HCPCS: 36415; 49083; 80048; 85025; 85610; 87070; 87075; 87205; 89050; 93005; 99285; J3490; Z7610

== ENCOUNTER 2020-07-31 07:06 | Emergency (ER) | payer MEDICAID ==
[~2020-07-31] VITALS: Ht 170.2 cm; Wt 73.0 kg
[2020-07-31] MEDS ORDERED: LIDOCAINE HCL 1% 20ML VIAL (Pyxis) INJ INFIL STA (07:38)
[2020-07-31 08:10] LABS: BASOPHILS % 0.9 % (0.0-2.0); HEMATOCRIT. 37.2 % (42.0-52.0); HEMOGLOBIN. 12.7 g/dL (14.0-18.0); LYMPHOCYTES % 16.7 % (20.0-50.0); MEAN CORPUSCULAR HEMOGLOBIN 30.7 pg (28.0-32.0); MEAN CORPUSCULAR VOLUME 89.9 fL (80.0-94.0); MEAN PLATELET VOLUME 7.6 fl (7.4-10.4); MONOCYTES % 11.7 % (2.0-8.0); NEUTROPHILS % 68.7 % (40.0-76.0); PLATELET 171 x1000/uL (130-400); RED BLOOD CELL COUNT 4.13 mill/uL (4.7-6.1); RED CELL DISTRIBUTION WIDTH 14.9 % (11.6-14.6)
[2020-07-31 08:15] LABS: CHLORIDE 95 mEq/L (98-107)
[2020-07-31 08:38] LABS: INR 1.1; PROTHROMBIN TIME 11.5 sec (9.6-11.0)
[2020-07-31] MEDS ORDERED: SODIUM BICARBONATE 4% (2.4MEQ) 5ML VIAL IV ONE (09:02)
[2020-07-31] MEDS ORDERED: LIDOCAINE HCL 1% 20ML VIAL (Pyxis) INJ ONE (09:02)
[2020-07-31 09:29] LABS: CLARITY URINE CLEAR (CLEAR); COLOR URINE DARK YELLOW (YELLOW); KETONES URINE TRACE (NEGATIVE); LEUKOCYTE ESTERASE URINE TRACE (NEGATIVE); NITRITE URINE NEGATIVE (NEGATIVE); OCCULT BLOOD URINE NEGATIVE (NEGATIVE); PH URINE 5.5 (4.5-8.0); PROTEIN URINE NEGATIVE (NEGATIVE); SPECIFIC GRAVITY URINE 1.024 (1.005-1.030)
[2020-07-31 09:47] LABS: *AMPHETAMINES SCREEN URINE NEGATIVE (NEGATIVE); *BARBITURATES SCREEN URINE NEGATIVE (NEGATIVE)
[2020-07-31 09:48] LABS: *BENZODIAZEPINES SCREEN URINE NEGATIVE (NEGATIVE); *COCAINE SCREEN URINE NEGATIVE (NEGATIVE); CANNABINOID URINE SCREEN NEGATIVE (NEGATIVE); METHADONE URINE SCREEN NEGATIVE (NEGATIVE); OPIATES URINE SCREEN NEGATIVE (NEGATIVE); PHENCYCLIDINE URINE SCREEN NEGATIVE (NEGATIVE)
[2020-07-31 12:50] VITALS: BP 101/61
== END 2020-07-31 13:06 | disposition home or self-care (01) ==
LOC: ER 07:06
DX: R18.8 Other ascites (principal); K74.60 Unspecified cirrhosis of liver; I10 Essential (primary) hypertension
CPT/HCPCS: 36415; 49083; 71045; 80053; 80305; 81003; 83605; 83690; 84484; 85025; 85610; 93005; 99285; J3490; Z7610

== ENCOUNTER 2020-08-07 07:01 | Emergency (ER) | payer MEDICAID ==
[~2020-08-07] VITALS: Ht 170.2 cm; Wt 82.0 kg
[2020-08-07 08:45] LABS: BASOPHILS % 1.1 % (0.0-2.0); EOSINOPHILS % 1.7 % (0.0-5.0); HEMATOCRIT. 33.9 % (42.0-52.0); HEMOGLOBIN. 11.7 g/dL (14.0-18.0); LYMPHOCYTES % 16.9 % (20.0-50.0); MEAN CORPUSCULAR HEMOGLOBIN 31.1 pg (28.0-32.0); MEAN CORPUSCULAR VOLUME 90.4 fL (80.0-94.0); MEAN PLATELET VOLUME 7.3 fl (7.4-10.4); NEUTROPHILS % 68.3 % (40.0-76.0); PLATELET 143 x1000/uL (130-400); RED BLOOD CELL COUNT 3.76 mill/uL (4.7-6.1); RED CELL DISTRIBUTION WIDTH 15.1 % (11.6-14.6)
[2020-08-07] MEDS ORDERED: LIDOCAINE HCL 1% 20ML VIAL (Pyxis) INJ ONE (08:48)
[2020-08-07] MEDS ORDERED: SODIUM BICARBONATE 4% (2.4MEQ) 5ML VIAL IV ONE (08:48)
[2020-08-07 08:50] LABS: CHLORIDE 97 mEq/L (98-107)
[2020-08-07 08:53] LABS: INR 1.1; PROTHROMBIN TIME 11.7 sec (9.6-11.0)
[2020-08-07 10:59] VITALS: BP 110/68
== END 2020-08-07 10:59 | disposition home or self-care (01) ==
LOC: ER 07:01
DX: R18.8 Other ascites (principal); K74.60 Unspecified cirrhosis of liver; I10 Essential (primary) hypertension
CPT/HCPCS: 36415; 49083; 80053; 83690; 85025; 85610; 99285; J3490; Z7610

== ENCOUNTER 2020-08-14 07:08 | Emergency (ER) | payer MEDICAID ==
[~2020-08-14] VITALS: Ht 170.2 cm; Wt 73.0 kg
[2020-08-14 08:00] LABS: BASOPHILS % 0.6 % (0.0-2.0); EOSINOPHILS % 1.4 % (0.0-5.0); HEMATOCRIT. 35.8 % (42.0-52.0); HEMOGLOBIN. 12.3 g/dL (14.0-18.0); LYMPHOCYTES % 15.9 % (20.0-50.0); MEAN CORPUSCULAR HEMOGLOBIN 30.9 pg (28.0-32.0); MEAN CORPUSCULAR VOLUME 90.1 fL (80.0-94.0); MEAN PLATELET VOLUME 7.1 fl (7.4-10.4); NEUTROPHILS % 70.1 % (40.0-76.0); PLATELET 157 x1000/uL (130-400); RED BLOOD CELL COUNT 3.98 mill/uL (4.7-6.1); RED CELL DISTRIBUTION WIDTH 15.3 % (11.6-14.6)
[2020-08-14 08:11] LABS: INR 1.1; PARTIAL THROMBOPLASTIN TIME 30.5 sec (23.4-31.0); PROTHROMBIN TIME 11.6 sec (9.6-11.0)
[2020-08-14] MEDS ORDERED: LIDOCAINE HCL 1% 20ML VIAL (Pyxis) INJ ONE (08:33)
[2020-08-14] MEDS ORDERED: SODIUM BICARBONATE 4% (2.4MEQ) 5ML VIAL IV ONE (08:34)
[2020-08-14 10:59] VITALS: BP 110/68
== END 2020-08-14 11:01 | disposition home or self-care (01) ==
LOC: ER 07:08
DX: R18.8 Other ascites (principal); I10 Essential (primary) hypertension; K76.9 Liver disease, unspecified
CPT/HCPCS: 36415; 49083; 85025; 85610; 85730; 93005; 99285; J3490; Z7610

== ENCOUNTER 2020-08-23 20:20 | Emergency (ER) | payer MEDICAID ==
[~2020-08-23] VITALS: Ht 165.1 cm; Wt 76.7 kg
[2020-08-23] MEDS ORDERED: LIDOCAINE 1%/EPI 1:100,000 10 ML VIAL IJ ONE (22:30)
[2020-08-23] MEDS ORDERED: BACITRACIN ZINC OINT UDPKT TOP ONE (22:30)
[2020-08-23 23:56] VITALS: BP 120/83
== END 2020-08-23 23:57 | disposition home or self-care (01) ==
LOC: ER 20:20
DX: R18.8 Other ascites (principal); K74.60 Unspecified cirrhosis of liver; Z01.89 Encounter for other specified special examinations
CPT/HCPCS: 99283; J3490

== ENCOUNTER 2020-09-11 07:43 | Emergency (ER) | payer MEDICAID ==
[~2020-09-11] VITALS: Ht 170.2 cm; Wt 84.4 kg
[2020-09-11 08:47] LABS: BASOPHILS % 0.8 % (0.0-2.0); EOSINOPHILS % 1.8 % (0.0-5.0); HEMATOCRIT. 33.5 % (42.0-52.0); HEMOGLOBIN. 11.7 g/dL (14.0-18.0); LYMPHOCYTES % 16.1 % (20.0-50.0); MEAN CORPUSCULAR HEMOGLOBIN 31.8 pg (28.0-32.0); MEAN CORPUSCULAR VOLUME 91.2 fL (80.0-94.0); MEAN PLATELET VOLUME 8.3 fl (7.4-10.4); MONOCYTES % 12.5 % (2.0-8.0); NEUTROPHILS % 68.8 % (40.0-76.0); PLATELET 171 x1000/uL (130-400); RED BLOOD CELL COUNT 3.68 mill/uL (4.7-6.1)
[2020-09-11 08:53] LABS: CHLORIDE 100 mEq/L (98-107)
[2020-09-11 08:55] LABS: INR 1.1; PROTHROMBIN TIME 11.7 sec (9.6-11.0)
[2020-09-11] MEDS ORDERED: SODIUM BICARBONATE 4% (2.4MEQ) 5ML VIAL IV ONE (10:39)
[2020-09-11] MEDS ORDERED: LIDOCAINE HCL 1% 20ML VIAL (Pyxis) INJ ONE (10:39)
[2020-09-11 12:02] VITALS: BP 113/69
== END 2020-09-11 12:31 | disposition home or self-care (01) ==
LOC: ER 07:43
DX: R18.8 Other ascites (principal); R14.0 Abdominal distension (gaseous); I10 Essential (primary) hypertension; F10.20 Alcohol dependence, uncomplicated; Z79.899 Other long term (current) drug therapy; Y90.9 Presence of alcohol in blood, level not specified
CPT/HCPCS: 36415; 49083; 80053; 85025; 85610; 93005; 99285; J3490; Z7610

== ENCOUNTER 2020-09-18 07:03 | Emergency (ER) | payer MEDICAID ==
[~2020-09-18] VITALS: Ht 170.2 cm; Wt 75.0 kg
[2020-09-18 09:09] LABS: BASOPHILS % 0.7 % (0.0-2.0); EOSINOPHILS % 1.8 % (0.0-5.0); HEMOGLOBIN. 11.3 g/dL (14.0-18.0); LYMPHOCYTES % 14.2 % (20.0-50.0); MEAN CORPUSCULAR HEMOGLOBIN 31.2 pg (28.0-32.0); MEAN CORPUSCULAR VOLUME 91.2 fL (80.0-94.0); MEAN PLATELET VOLUME 7.9 fl (7.4-10.4); MONOCYTES % 11.3 % (2.0-8.0); PLATELET 152 x1000/uL (130-400); RED BLOOD CELL COUNT 3.62 mill/uL (4.7-6.1); RED CELL DISTRIBUTION WIDTH 14.2 % (11.6-14.6)
[2020-09-18 09:20] LABS: INR 1.1; PARTIAL THROMBOPLASTIN TIME 32.9 sec (23.4-31.0); PROTHROMBIN TIME 11.7 sec (9.6-11.0)
[2020-09-18] MEDS ORDERED: LIDOCAINE HCL 1% 20ML VIAL (Pyxis) INJ ONE (10:14)
[2020-09-18] MEDS ORDERED: SODIUM BICARBONATE 4% (2.4MEQ) 5ML VIAL IV ONE (10:14)
[2020-09-18 13:19] VITALS: BP 116/70
== END 2020-09-18 13:20 | disposition home or self-care (01) ==
LOC: ER 07:03
DX: R18.8 Other ascites (principal); R10.9 Unspecified abdominal pain; G89.29 Other chronic pain; I10 Essential (primary) hypertension; K76.9 Liver disease, unspecified
CPT/HCPCS: 36415; 49083; 85025; 85610; 85730; 93005; 99285; J3490; Z7610

== ENCOUNTER 2020-09-25 07:30 | Emergency (ER) | payer MEDICAID ==
[~2020-09-25] VITALS: Ht 170.2 cm; Wt 74.0 kg
[2020-09-25 08:54] LABS: BASOPHILS % 0.8 % (0.0-2.0); EOSINOPHILS % 1.7 % (0.0-5.0); HEMATOCRIT. 33.5 % (42.0-52.0); HEMOGLOBIN. 11.6 g/dL (14.0-18.0); LYMPHOCYTES % 17.1 % (20.0-50.0); MEAN CORPUSCULAR HEMOGLOBIN 31.3 pg (28.0-32.0); MEAN PLATELET VOLUME 7.8 fl (7.4-10.4); MONOCYTES % 11.5 % (2.0-8.0); NEUTROPHILS % 68.9 % (40.0-76.0); PLATELET 159 x1000/uL (130-400); RED BLOOD CELL COUNT 3.72 mill/uL (4.7-6.1); RED CELL DISTRIBUTION WIDTH 14.3 % (11.6-14.6)
[2020-09-25 08:57] LABS: CHLORIDE 97 mEq/L (98-107)
[2020-09-25 09:00] LABS: INR 1.1; PROTHROMBIN TIME 11.9 sec (9.6-11.0)
[2020-09-25] MEDS ORDERED: SODIUM BICARBONATE 4% (2.4MEQ) 5ML VIAL IV ONE (11:04)
[2020-09-25] MEDS ORDERED: LIDOCAINE HCL 1% 20ML VIAL (Pyxis) INJ ONE (11:04)
[2020-09-25 13:30] VITALS: BP 108/73
== END 2020-09-25 13:30 | disposition home or self-care (01) ==
LOC: ER 07:30
DX: R18.8 Other ascites (principal); I10 Essential (primary) hypertension; K70.9 Alcoholic liver disease, unspecified; K74.60 Unspecified cirrhosis of liver; D64.9 Anemia, unspecified; E87.6 Hypokalemia; N28.9 Disorder of kidney and ureter, unspecified
CPT/HCPCS: 36415; 49083; 80053; 85025; 85610; 87426; 93005; 99285; J3490; Z7610

== ENCOUNTER 2020-10-02 07:13 | Emergency (ER) | payer MEDICAID ==
[~2020-10-02] VITALS: Ht 170.2 cm; Wt 83.0 kg
[2020-10-02 08:25] LABS: BASOPHILS % 0.6 % (0.0-2.0); EOSINOPHILS % 2.1 % (0.0-5.0); HEMATOCRIT. 30.9 % (42.0-52.0); HEMOGLOBIN. 10.8 g/dL (14.0-18.0); MEAN CORPUSCULAR VOLUME 88.8 fL (80.0-94.0); MEAN PLATELET VOLUME 7.5 fl (7.4-10.4); MONOCYTES % 11.4 % (2.0-8.0); NEUTROPHILS % 71.9 % (40.0-76.0); PLATELET 154 x1000/uL (130-400); RED BLOOD CELL COUNT 3.48 mill/uL (4.7-6.1); RED CELL DISTRIBUTION WIDTH 14.1 % (11.6-14.6)
[2020-10-02 08:32] LABS: CHLORIDE 95 mEq/L (98-107)
[2020-10-02 08:35] LABS: INR 1.1; PROTHROMBIN TIME 11.5 sec (9.6-11.0)
[2020-10-02] MEDS ORDERED: SODIUM BICARBONATE 4% (2.4MEQ) 5ML VIAL IV ONE (09:04)
[2020-10-02] MEDS ORDERED: LIDOCAINE HCL 1% 20ML VIAL (Pyxis) INJ ONE (09:04)
[2020-10-02 10:25] VITALS: BP 114/75
[2020-10-02] MEDS ORDERED: POTASSIUM CHLORIDE 20MEQ TABLET SR PO ONE (10:30)
== END 2020-10-02 10:40 | disposition home or self-care (01) ==
LOC: ER 07:13
DX: R18.8 Other ascites (principal); I10 Essential (primary) hypertension; K76.9 Liver disease, unspecified; K74.60 Unspecified cirrhosis of liver; Z20.828 Contact with and (suspected) exposure to other viral communicable diseases
CPT/HCPCS: 36415; 49083; 80053; 85025; 85610; 87426; 93005; 99285; J3490; Z7610

== ENCOUNTER 2020-10-09 06:40 | Emergency (ER) | payer MEDICAID ==
[~2020-10-09] VITALS: Ht 170.2 cm; Wt 75.0 kg
[2020-10-09 07:57] LABS: BASOPHILS % 0.9 % (0.0-2.0); EOSINOPHILS % 2.3 % (0.0-5.0); HEMATOCRIT. 33.7 % (42.0-52.0); HEMOGLOBIN. 11.6 g/dL (14.0-18.0); LYMPHOCYTES % 14.4 % (20.0-50.0); MEAN CORPUSCULAR HEMOGLOBIN 31.2 pg (28.0-32.0); MEAN CORPUSCULAR VOLUME 90.3 fL (80.0-94.0); MEAN PLATELET VOLUME 7.5 fl (7.4-10.4); MONOCYTES % 9.8 % (2.0-8.0); NEUTROPHILS % 72.6 % (40.0-76.0); PLATELET 165 x1000/uL (130-400); RED BLOOD CELL COUNT 3.73 mill/uL (4.7-6.1); RED CELL DISTRIBUTION WIDTH 14.1 % (11.6-14.6)
[2020-10-09 08:03] LABS: CHLORIDE 97 mEq/L (98-107)
[2020-10-09 08:17] LABS: PROTHROMBIN TIME 10.9 sec (9.6-11.0)
[2020-10-09] MEDS ORDERED: LIDOCAINE HCL 1% 20ML VIAL (Pyxis) INJ ONE (10:56)
[2020-10-09] MEDS ORDERED: SODIUM BICARBONATE 4% (2.4MEQ) 5ML VIAL IV ONE (10:56)
[2020-10-09] MEDS ORDERED: POTASSIUM CHLORIDE 20MEQ TABLET SR PO ONE (12:15)
[2020-10-09 13:00] VITALS: BP 120/78
== END 2020-10-09 13:00 | disposition home or self-care (01) ==
LOC: ER 06:44
DX: K74.60 Unspecified cirrhosis of liver (principal); R14.0 Abdominal distension (gaseous); I10 Essential (primary) hypertension
CPT/HCPCS: 36415; 49083; 80053; 85025; 85610; 87426; 93005; 99285; J3490; Z7610

== ENCOUNTER 2020-10-16 07:14 | Emergency (ER) | payer MEDICAID ==
[~2020-10-16] VITALS: Ht 170.2 cm; Wt 84.0 kg
[~2020-10-16 07:14] MED LIST changes: +CHLO25TA2 PO; +MV-M1CAP15 PO
[2020-10-16 08:36] LABS: BASOPHILS % 0.8 % (0.0-2.0); HEMATOCRIT. 34.3 % (42.0-52.0); HEMOGLOBIN. 11.8 g/dL (14.0-18.0); LYMPHOCYTES % 13.8 % (20.0-50.0); MEAN CORPUSCULAR HEMOGLOBIN 30.6 pg (28.0-32.0); MEAN CORPUSCULAR VOLUME 89.2 fL (80.0-94.0); MEAN PLATELET VOLUME 7.8 fl (7.4-10.4); MONOCYTES % 7.4 % (2.0-8.0); PLATELET 169 x1000/uL (130-400); RED BLOOD CELL COUNT 3.85 mill/uL (4.7-6.1); RED CELL DISTRIBUTION WIDTH 13.5 % (11.6-14.6)
[2020-10-16 08:45] LABS: CHLORIDE 95 mEq/L (98-107)
[2020-10-16] MEDS ORDERED: DIPHENHYDRAMINE 25MG CAPSULE PO ONE (08:45)
[2020-10-16 08:46] LABS: INR 1.1; PROTHROMBIN TIME 11.2 sec (9.6-11.0)
[2020-10-16] MEDS ORDERED: LIDOCAINE HCL 1% 20ML VIAL (Pyxis) INJ ONE (11:11)
[2020-10-16] MEDS ORDERED: SODIUM BICARBONATE 4% (2.4MEQ) 5ML VIAL IV ONE (11:11)
[2020-10-16 11:45] VITALS: BP 120/82
== END 2020-10-16 12:44 | disposition home or self-care (01) ==
LOC: MERGE 07:22 → ER 07:22
DX: R18.8 Other ascites (principal); I10 Essential (primary) hypertension; K74.60 Unspecified cirrhosis of liver; Z20.828 Contact with and (suspected) exposure to other viral communicable diseases
CPT/HCPCS: 36415; 49083; 80053; 83690; 85025; 85610; 87426; 93005; 99285; J3490; Z7610

== ENCOUNTER 2021-02-18 07:35 | Emergency (ER) | payer MEDICAID ==
[~2021-02-18] VITALS: Ht 170.2 cm; Wt 76.0 kg
[2021-02-18 08:44] LABS: HEMATOCRIT. 30.6 % (42.0-52.0); HEMOGLOBIN. 10.5 g/dL (14.0-18.0); MEAN CORPUSCULAR HEMOGLOBIN 28.6 pg (28.0-32.0); MEAN PLATELET VOLUME 7.5 fl (7.4-10.4); PLATELET 209 x1000/uL (130-400); RED BLOOD CELL COUNT 3.69 mill/uL (4.7-6.1); RED CELL DISTRIBUTION WIDTH 14.6 % (11.6-14.6)
[2021-02-18 08:56] LABS: INR 1.1; PARTIAL THROMBOPLASTIN TIME 32.6 sec (23.4-31.0); PROTHROMBIN TIME 12.1 sec (9.6-11.0)
[2021-02-18 09:22] LABS: PLATELET ESTIMATE NORMAL
[2021-02-18] MEDS ORDERED: SODIUM BICARBONATE 4% (2.4MEQ) 5ML VIAL IV ONE (09:27)
[2021-02-18] MEDS ORDERED: LIDOCAINE HCL 1% 20ML VIAL (Pyxis) INJ ONE (09:27)
[2021-02-18 12:30] VITALS: BP 117/81
== END 2021-02-18 12:32 | disposition home or self-care (01) ==
LOC: ER 07:35
DX: R10.9 Unspecified abdominal pain (principal); R18.8 Other ascites; Z20.822 Contact with and (suspected) exposure to COVID-19
CPT/HCPCS: 36415; 49083; 85025; 85610; 85730; 87426; 93005; 99285; J3490; Z7610

== ENCOUNTER 2021-02-25 07:41 | Emergency (ER) | payer MEDICAID ==
[~2021-02-25] VITALS: Ht 160 cm; Wt 76.0 kg
[2021-02-25 09:46] LABS: CHLORIDE 85 mEq/L (98-107)
[2021-02-25 09:47] LABS: BASOPHILS % 0.8 % (0.0-2.0); EOSINOPHILS % 1.4 % (0.0-5.0); HEMATOCRIT. 33.5 % (42.0-52.0); HEMOGLOBIN. 11.6 g/dL (14.0-18.0); LYMPHOCYTES % 9.4 % (20.0-50.0); MEAN CORPUSCULAR HEMOGLOBIN 28.8 pg (28.0-32.0); MEAN CORPUSCULAR VOLUME 82.9 fL (80.0-94.0); MEAN PLATELET VOLUME 7.3 fl (7.4-10.4); MONOCYTES % 11.3 % (2.0-8.0); NEUTROPHILS % 77.1 % (40.0-76.0); PLATELET 252 x1000/uL (130-400); RED BLOOD CELL COUNT 4.04 mill/uL (4.7-6.1); RED CELL DISTRIBUTION WIDTH 14.4 % (11.6-14.6)
[2021-02-25 10:01] LABS: PROTHROMBIN TIME 11.2 sec (9.6-11.0)
[2021-02-25] MEDS ORDERED: LIDOCAINE HCL 1% 20ML VIAL (Pyxis) INJ ONE (13:33)
[2021-02-25] MEDS ORDERED: SODIUM BICARBONATE 4% (2.4MEQ) 5ML VIAL IV ONE (13:33)
[2021-02-25 14:44] VITALS: BP 107/68
== END 2021-02-25 15:33 | disposition left against medical advice (07) ==
LOC: ER 07:41
DX: R18.8 Other ascites (principal); Z20.822 Contact with and (suspected) exposure to COVID-19; K70.9 Alcoholic liver disease, unspecified; I12.9 Hypertensive chronic kidney disease with stage 1 through stage 4 chronic kidney disease, or unspecified chronic kidney disease; N18.9 Chronic kidney disease, unspecified
CPT/HCPCS: 36415; 49083; 80053; 85025; 85610; 87426; 99285; J3490; Z7610

== ENCOUNTER 2021-03-04 06:30 | Emergency (ER) | payer MEDICAID ==
[~2021-03-04] VITALS: Ht 170.2 cm; Wt 73.0 kg
[2021-03-04 07:24] LABS: BASOPHILS % 0.9 % (0.0-2.0); HEMATOCRIT. 32.5 % (42.0-52.0); HEMOGLOBIN. 11.1 g/dL (14.0-18.0); LYMPHOCYTES % 7.5 % (20.0-50.0); MEAN CORPUSCULAR HEMOGLOBIN 28.2 pg (28.0-32.0); MEAN PLATELET VOLUME 6.9 fl (7.4-10.4); MONOCYTES % 8.2 % (2.0-8.0); NEUTROPHILS % 82.4 % (40.0-76.0); PLATELET 232 x1000/uL (130-400); RED BLOOD CELL COUNT 3.96 mill/uL (4.7-6.1); RED CELL DISTRIBUTION WIDTH 14.8 % (11.6-14.6)
[2021-03-04 07:32] LABS: CHLORIDE 84 mEq/L (98-107)
[2021-03-04 07:59] LABS: INR 1.1; PROTHROMBIN TIME 11.4 sec (9.6-11.0)
[2021-03-04] MEDS ORDERED: POTASSIUM CHLORIDE 20MEQ TABLET SR PO ONE (08:00)
[2021-03-04 09:30] VITALS: BP 137/94
[2021-03-04] MEDS ORDERED: SODIUM BICARBONATE 4% (2.4MEQ) 5ML VIAL IV ONE (11:22)
[2021-03-04] MEDS ORDERED: LIDOCAINE HCL 1% 20ML VIAL (Pyxis) INJ ONE (11:22)
== END 2021-03-04 14:15 | disposition left against medical advice (07) ==
LOC: ER 06:33
DX: R18.8 Other ascites (principal); E87.8 Other disorders of electrolyte and fluid balance, not elsewhere classified; E87.1 Hypo-osmolality and hyponatremia; E87.6 Hypokalemia; K72.10 Chronic hepatic failure without coma; K74.60 Unspecified cirrhosis of liver; I12.9 Hypertensive chronic kidney disease with stage 1 through stage 4 chronic kidney disease, or unspecified chronic kidney disease; N18.9 Chronic kidney disease, unspecified; Z20.822 Contact with and (suspected) exposure to COVID-19; Z87.891 Personal history of nicotine dependence
CPT/HCPCS: 36415; 49083; 80053; 83690; 85025; 85610; 87426; 99285; J3490; Z7610; A4315

== ENCOUNTER 2021-03-11 06:54 | Emergency (ER) | payer MEDICAID ==
[~2021-03-11] VITALS: Ht 167.6 cm; Wt 81.0 kg
[2021-03-11] MEDS ORDERED: IBUPROFEN 600MG TABLET PO STA (08:20)
[2021-03-11] MEDS ORDERED: POTASSIUM CHLORIDE 20MEQ TABLET SR PO ONE (08:30)
[2021-03-11 08:35] LABS: CHLORIDE 89 mEq/L (98-107)
[2021-03-11 08:37] LABS: INR 1.1; PROTHROMBIN TIME 11.4 sec (9.6-11.0)
[2021-03-11 08:39] LABS: BASOPHILS % 0.9 % (0.0-2.0); EOSINOPHILS % 2.1 % (0.0-5.0); HEMATOCRIT. 31.5 % (42.0-52.0); HEMOGLOBIN. 10.6 g/dL (14.0-18.0); LYMPHOCYTES % 7.8 % (20.0-50.0); MEAN CORPUSCULAR HEMOGLOBIN 28.3 pg (28.0-32.0); MEAN CORPUSCULAR VOLUME 84.3 fL (80.0-94.0); MEAN PLATELET VOLUME 7.2 fl (7.4-10.4); NEUTROPHILS % 78.2 % (40.0-76.0); PLATELET 179 x1000/uL (130-400); RED BLOOD CELL COUNT 3.73 mill/uL (4.7-6.1); RED CELL DISTRIBUTION WIDTH 14.9 % (11.6-14.6)
[2021-03-11] MEDS ORDERED: LIDOCAINE HCL 1% 20ML VIAL (Pyxis) INJ ONE (10:26)
[2021-03-11] MEDS ORDERED: SODIUM BICARBONATE 4% (2.4MEQ) 5ML VIAL IV ONE (10:27)
[2021-03-11 12:57] VITALS: BP 111/75
== END 2021-03-11 13:00 | disposition home or self-care (01) ==
LOC: ER 06:54
DX: R18.8 Other ascites (principal); K74.60 Unspecified cirrhosis of liver; I12.9 Hypertensive chronic kidney disease with stage 1 through stage 4 chronic kidney disease, or unspecified chronic kidney disease; N18.9 Chronic kidney disease, unspecified; Z20.822 Contact with and (suspected) exposure to COVID-19
CPT/HCPCS: 36415; 49083; 80053; 85025; 85610; 87426; 93005; 99285; J3490; Z7610

== ENCOUNTER 2021-03-18 06:39 | Emergency (ER) | payer MEDICAID ==
[~2021-03-18] VITALS: Ht 170.2 cm; Wt 79.0 kg
[2021-03-18 07:54] LABS: BASOPHILS % 1.3 % (0.0-2.0); EOSINOPHILS % 3.3 % (0.0-5.0); HEMATOCRIT. 32.6 % (42.0-52.0); HEMOGLOBIN. 10.7 g/dL (14.0-18.0); LYMPHOCYTES % 12.1 % (20.0-50.0); MEAN CORPUSCULAR HEMOGLOBIN 27.6 pg (28.0-32.0); MEAN CORPUSCULAR VOLUME 84.4 fL (80.0-94.0); MEAN PLATELET VOLUME 7.1 fl (7.4-10.4); MONOCYTES % 13.6 % (2.0-8.0); NEUTROPHILS % 69.7 % (40.0-76.0); PLATELET 173 x1000/uL (130-400); RED BLOOD CELL COUNT 3.86 mill/uL (4.7-6.1); RED CELL DISTRIBUTION WIDTH 14.9 % (11.6-14.6)
[2021-03-18 08:02] LABS: CHLORIDE 99 mEq/L (98-107)
[2021-03-18 08:04] LABS: INR 1.1; PROTHROMBIN TIME 11.3 sec (9.6-11.0)
[2021-03-18] MEDS ORDERED: LIDOCAINE HCL 1% 20ML VIAL (Pyxis) INJ ONE (09:42)
[2021-03-18] MEDS ORDERED: SODIUM BICARBONATE 4% (2.4MEQ) 5ML VIAL IV ONE (09:42)
[2021-03-18] MEDS ORDERED: FURO40TA5 PO (11:17)
[2021-03-18] MEDS ORDERED: SPIR25TA6 PO (11:17)
[2021-03-18 11:29] VITALS: BP 113/71
== END 2021-03-18 11:37 | disposition home or self-care (01) ==
LOC: ER 06:39
DX: R18.8 Other ascites (principal); K74.60 Unspecified cirrhosis of liver; I12.9 Hypertensive chronic kidney disease with stage 1 through stage 4 chronic kidney disease, or unspecified chronic kidney disease; N18.9 Chronic kidney disease, unspecified; Z20.822 Contact with and (suspected) exposure to COVID-19
CPT/HCPCS: 36415; 49083; 80053; 85025; 85610; 87426; 99285; J3490; Z7610

== ENCOUNTER 2021-03-25 06:33 | Emergency (ER) | payer MEDICAID ==
[~2021-03-25] VITALS: Ht 170.2 cm; Wt 74.0 kg
[~2021-03-25 06:33] MED LIST changes: +FURO40TA5 PO; +SPIR25TA6 PO
[2021-03-25 07:33] LABS: EOSINOPHILS % 4.8 % (0.0-5.0); HEMATOCRIT. 30.7 % (42.0-52.0); HEMOGLOBIN. 10.2 g/dL (14.0-18.0); LYMPHOCYTES % 10.8 % (20.0-50.0); MEAN CORPUSCULAR HEMOGLOBIN 28.4 pg (28.0-32.0); MEAN CORPUSCULAR VOLUME 85.3 fL (80.0-94.0); MEAN PLATELET VOLUME 7.2 fl (7.4-10.4); MONOCYTES % 11.7 % (2.0-8.0); NEUTROPHILS % 71.7 % (40.0-76.0); PLATELET 191 x1000/uL (130-400); RED CELL DISTRIBUTION WIDTH 15.4 % (11.6-14.6)
[2021-03-25 07:36] LABS: CHLORIDE 103 mEq/L (98-107)
[2021-03-25 07:39] LABS: PROTHROMBIN TIME 11.1 sec (9.6-11.0)
[2021-03-25 07:46] LABS: CLARITY URINE CLEAR (CLEAR); COLOR URINE YELLOW (YELLOW); KETONES URINE NEGATIVE (NEGATIVE); LEUKOCYTE ESTERASE URINE NEGATIVE (NEGATIVE); NITRITE URINE NEGATIVE (NEGATIVE); OCCULT BLOOD URINE NEGATIVE (NEGATIVE); PROTEIN URINE NEGATIVE (NEGATIVE); SPECIFIC GRAVITY URINE 1.009 (1.005-1.030); UROBILINOGEN URINE 0.2 E.U./dL (0.2-1.0)
[2021-03-25] MEDS ORDERED: LIDOCAINE HCL 1% 20ML VIAL (Pyxis) INJ ONE (09:56)
[2021-03-25] MEDS ORDERED: SODIUM BICARBONATE 4% (2.4MEQ) 5ML VIAL IV ONE (09:57)
[2021-03-25 12:36] VITALS: BP 130/87
== END 2021-03-25 12:37 | disposition home or self-care (01) ==
LOC: ER 06:33
DX: R18.8 Other ascites (principal); M79.18 Myalgia, other site; I12.9 Hypertensive chronic kidney disease with stage 1 through stage 4 chronic kidney disease, or unspecified chronic kidney disease; N18.9 Chronic kidney disease, unspecified; K74.60 Unspecified cirrhosis of liver; Z20.822 Contact with and (suspected) exposure to COVID-19
CPT/HCPCS: 36415; 49083; 72040; 72070; 72100; 73560; 80053; 81003; 83690; 85025; 85610; 87426; 93005; 99285; J3490; Z7610

== ENCOUNTER 2021-04-01 07:20 | Emergency (ER) | payer MEDICAID ==
[~2021-04-01] VITALS: Ht 170.2 cm; Wt 84.6 kg
[2021-04-01 08:23] LABS: BASOPHILS % 1.4 % (0.0-2.0); EOSINOPHILS % 3.5 % (0.0-5.0); HEMATOCRIT. 33.1 % (42.0-52.0); LYMPHOCYTES % 10.9 % (20.0-50.0); MEAN CORPUSCULAR VOLUME 84.3 fL (80.0-94.0); MEAN PLATELET VOLUME 7.5 fl (7.4-10.4); MONOCYTES % 12.2 % (2.0-8.0); PLATELET 206 x1000/uL (130-400); RED BLOOD CELL COUNT 3.92 mill/uL (4.7-6.1); RED CELL DISTRIBUTION WIDTH 15.8 % (11.6-14.6)
[2021-04-01 08:29] LABS: CHLORIDE 105 mEq/L (98-107)
[2021-04-01 08:31] LABS: PROTHROMBIN TIME 11.1 sec (9.6-11.0)
[2021-04-01] MEDS ORDERED: LIDOCAINE HCL 1% 20ML VIAL (Pyxis) INJ ONE (09:34)
[2021-04-01] MEDS ORDERED: SODIUM BICARBONATE 4% (2.4MEQ) 5ML VIAL IV ONE (09:35)
[2021-04-01 14:42] VITALS: BP 116/84
== END 2021-04-01 15:02 | disposition home or self-care (01) ==
LOC: EDBD → ER 07:20
DX: R14.0 Abdominal distension (gaseous) (principal); R18.8 Other ascites; I10 Essential (primary) hypertension; K76.9 Liver disease, unspecified; K74.60 Unspecified cirrhosis of liver; Z20.822 Contact with and (suspected) exposure to COVID-19
CPT/HCPCS: 36415; 49083; 80053; 85025; 85610; 87426; 93005; 99285; J3490; Z7610

== ENCOUNTER 2021-04-08 06:38 | Emergency (ER) | payer MEDICAID ==
[~2021-04-08] VITALS: Ht 170.2 cm; Wt 74.0 kg
[2021-04-08 07:36] LABS: CHLORIDE 105 mEq/L (98-107)
[2021-04-08 07:38] LABS: BASOPHILS % 0.8 % (0.0-2.0); EOSINOPHILS % 3.7 % (0.0-5.0); HEMOGLOBIN. 10.9 g/dL (14.0-18.0); LYMPHOCYTES % 10.7 % (20.0-50.0); MEAN CORPUSCULAR HEMOGLOBIN 28.2 pg (28.0-32.0); MEAN CORPUSCULAR VOLUME 85.3 fL (80.0-94.0); MEAN PLATELET VOLUME 7.3 fl (7.4-10.4); MONOCYTES % 12.2 % (2.0-8.0); NEUTROPHILS % 72.6 % (40.0-76.0); PLATELET 182 x1000/uL (130-400); RED BLOOD CELL COUNT 3.87 mill/uL (4.7-6.1)
[2021-04-08] MEDS ORDERED: IBUPROFEN 400MG TABLET PO ONE (08:45)
[2021-04-08] MEDS ORDERED: LIDOCAINE HCL 1% 20ML VIAL (Pyxis) INJ ONE (10:16)
[2021-04-08] MEDS ORDERED: SODIUM BICARBONATE 4% (2.4MEQ) 5ML VIAL IV ONE (10:16)
[2021-04-08 12:00] VITALS: BP 109/60
== END 2021-04-08 08:26 | disposition home or self-care (01) ==
LOC: ER 06:38
DX: R18.8 Other ascites (principal); I10 Essential (primary) hypertension; K76.9 Liver disease, unspecified; K74.60 Unspecified cirrhosis of liver; Z20.822 Contact with and (suspected) exposure to COVID-19
CPT/HCPCS: 36415; 49083; 80053; 85025; 85610; 87426; 93005; 99285; A4217; J3490; Z7610

== ENCOUNTER 2021-04-18 11:53 | Emergency (ER) | payer MEDICAID ==
[~2021-04-18] VITALS: Ht 160 cm; Wt 66.0 kg
[2021-04-18 12:42] LABS: BASOPHILS % 0.8 % (0.0-2.0); EOSINOPHILS % 2.6 % (0.0-5.0); HEMATOCRIT. 33.7 % (42.0-52.0); HEMOGLOBIN. 11.6 g/dL (14.0-18.0); LYMPHOCYTES % 9.2 % (20.0-50.0); MEAN CORPUSCULAR HEMOGLOBIN 28.7 pg (28.0-32.0); MEAN CORPUSCULAR VOLUME 83.3 fL (80.0-94.0); MEAN PLATELET VOLUME 7.2 fl (7.4-10.4); MONOCYTES % 11.3 % (2.0-8.0); NEUTROPHILS % 76.1 % (40.0-76.0); PLATELET 219 x1000/uL (130-400); RED BLOOD CELL COUNT 4.05 mill/uL (4.7-6.1); RED CELL DISTRIBUTION WIDTH 15.8 % (11.6-14.6)
[2021-04-18 12:50] LABS: CHLORIDE 101 mEq/L (98-107)
[2021-04-18] MEDS ORDERED: HYDR28.485 RC (13:18)
[2021-04-18] MEDS ORDERED: IBUP-2029 MT (13:18)
[2021-04-18 13:35] VITALS: BP 120/80
== END 2021-04-18 13:49 | disposition home or self-care (01) ==
LOC: ER 12:07
DX: S31.115A Laceration without foreign body of abdominal wall, periumbilic region without penetration into peritoneal cavity, initial encounter (principal); R18.8 Other ascites; K74.60 Unspecified cirrhosis of liver; I10 Essential (primary) hypertension; X58.XXXA Exposure to other specified factors, initial encounter; Y93.9 Activity, unspecified; Y92.9 Unspecified place or not applicable
CPT/HCPCS: 12001; 36415; 80053; 85025; 93005; 99284; Z7610

== ENCOUNTER 2021-04-20 09:21 | Emergency (ER) | payer MEDICAID ==
[~2021-04-20] VITALS: Ht 170.2 cm; Wt 74.0 kg
[~2021-04-20 09:21] MED LIST changes: +DIPH25CA83 MT; +DIPH30CR TP; +FURO-151 MT; +FURO-152 MT; +HYDR28.485 RC; +IBUP-2029 MT; +MULT1TAB63 PO; +SPIR25TA6 MT
[2021-04-20 09:34] VITALS: BP 109/70
== END 2021-04-20 11:23 | disposition home or self-care (01) ==
LOC: ER 09:21 → MERGE 09:21 → ER 11:23
DX: T81.89XA Other complications of procedures, not elsewhere classified, initial encounter (principal); S31.115A Laceration without foreign body of abdominal wall, periumbilic region without penetration into peritoneal cavity, initial encounter; R18.8 Other ascites; K70.31 Alcoholic cirrhosis of liver with ascites; I10 Essential (primary) hypertension; Z98.890 Other specified postprocedural states; Z79.899 Other long term (current) drug therapy; X58.XXXA Exposure to other specified factors, initial encounter; Y93.89 Activity, other specified; Y92.018 Other place in single-family (private) house as the place of occurrence of the external cause; Y99.8 Other external cause status
CPT/HCPCS: 12002; 99282; A4217; Z7610

== ENCOUNTER 2021-05-06 06:09 | Emergency (ER) | payer MEDICAID ==
[~2021-05-06] VITALS: Ht 170.2 cm; Wt 74.0 kg
[2021-05-06 07:03] LABS: BASOPHILS % 0.8 % (0.0-2.0); EOSINOPHILS % 2.9 % (0.0-5.0); HEMATOCRIT. 30.7 % (42.0-52.0); HEMOGLOBIN. 10.4 g/dL (14.0-18.0); LYMPHOCYTES % 8.6 % (20.0-50.0); MEAN CORPUSCULAR HEMOGLOBIN 28.6 pg (28.0-32.0); MEAN CORPUSCULAR VOLUME 84.7 fL (80.0-94.0); MEAN PLATELET VOLUME 7.2 fl (7.4-10.4); NEUTROPHILS % 75.7 % (40.0-76.0); PLATELET 180 x1000/uL (130-400); RED BLOOD CELL COUNT 3.63 mill/uL (4.7-6.1); RED CELL DISTRIBUTION WIDTH 15.3 % (11.6-14.6)
[2021-05-06 07:11] LABS: CHLORIDE 106 mEq/L (98-107)
[2021-05-06 07:14] LABS: PROTHROMBIN TIME 10.9 sec (9.6-11.0)
[2021-05-06] MEDS ORDERED: LIDOCAINE HCL 1% 20ML VIAL (Pyxis) INJ ONE (08:57)
[2021-05-06] MEDS ORDERED: SODIUM BICARBONATE 4% (2.4MEQ) 5ML VIAL IV ONE (08:57)
[2021-05-06 10:50] VITALS: BP 105/66
== END 2021-05-06 10:52 | disposition home or self-care (01) ==
LOC: MERGE 06:09 → ER 06:09
DX: R18.8 Other ascites (principal); I10 Essential (primary) hypertension; K74.60 Unspecified cirrhosis of liver; Z20.822 Contact with and (suspected) exposure to COVID-19
CPT/HCPCS: 36415; 49083; 80053; 85025; 85610; 87426; 99285; J3490; Z7610

== ENCOUNTER 2021-05-12 13:25 | Emergency (ER) | payer MEDICAID ==
[~2021-05-12] VITALS: Ht 170.2 cm; Wt 73.0 kg
[2021-05-12 14:29] LABS: BASOPHILS % 0.8 % (0.0-2.0); EOSINOPHILS % 2.2 % (0.0-5.0); HEMATOCRIT. 29.7 % (42.0-52.0); HEMOGLOBIN. 10.1 g/dL (14.0-18.0); LYMPHOCYTES % 9.1 % (20.0-50.0); MEAN CORPUSCULAR HEMOGLOBIN 28.6 pg (28.0-32.0); MEAN CORPUSCULAR VOLUME 84.4 fL (80.0-94.0); MEAN PLATELET VOLUME 7.1 fl (7.4-10.4); NEUTROPHILS % 76.9 % (40.0-76.0); PLATELET 190 x1000/uL (130-400); RED BLOOD CELL COUNT 3.52 mill/uL (4.7-6.1); RED CELL DISTRIBUTION WIDTH 15.2 % (11.6-14.6)
[2021-05-12 14:32] LABS: CHLORIDE 104 mEq/L (98-107)
[2021-05-12 14:36] LABS: INR 1.1; PROTHROMBIN TIME 11.7 sec (9.6-11.0)
[2021-05-12] MEDS ORDERED: LIDOCAINE HCL 1% 20ML VIAL (Pyxis) INJ INFIL ONE (15:00)
[2021-05-12 15:38] VITALS: BP 124/74
== END 2021-05-12 18:50 | disposition home or self-care (01) ==
LOC: ER 13:25
DX: R18.8 Other ascites (principal); I10 Essential (primary) hypertension; F10.20 Alcohol dependence, uncomplicated; K76.9 Liver disease, unspecified; F17.200 Nicotine dependence, unspecified, uncomplicated; Z79.899 Other long term (current) drug therapy; Y90.9 Presence of alcohol in blood, level not specified
CPT/HCPCS: 36415; 49083; 80053; 85025; 85610; 99285; J3490; Z7610

== ENCOUNTER 2021-05-20 05:58 | Emergency (ER) | payer MEDICAID ==
[~2021-05-20] VITALS: Ht 170.2 cm; Wt 90.0 kg
[2021-05-20 09:02] LABS: BASOPHILS % 1.2 % (0.0-2.0); EOSINOPHILS % 2.7 % (0.0-5.0); HEMATOCRIT. 29.9 % (42.0-52.0); HEMOGLOBIN. 10.3 g/dL (14.0-18.0); LYMPHOCYTES % 9.2 % (20.0-50.0); MEAN CORPUSCULAR HEMOGLOBIN 28.9 pg (28.0-32.0); MEAN CORPUSCULAR VOLUME 84.2 fL (80.0-94.0); MEAN PLATELET VOLUME 7.2 fl (7.4-10.4); NEUTROPHILS % 73.9 % (40.0-76.0); PLATELET 207 x1000/uL (130-400); RED BLOOD CELL COUNT 3.55 mill/uL (4.7-6.1); RED CELL DISTRIBUTION WIDTH 15.2 % (11.6-14.6)
[2021-05-20 09:10] LABS: CHLORIDE 104 mEq/L (98-107)
[2021-05-20 09:12] LABS: PROTHROMBIN TIME 11.2 sec (9.6-11.0)
[2021-05-20] MEDS ORDERED: LIDOCAINE HCL 1% 20ML VIAL (Pyxis) INJ ONE (11:51)
[2021-05-20] MEDS ORDERED: SODIUM BICARBONATE 4% (2.4MEQ) 5ML VIAL IV ONE (11:52)
[2021-05-20 13:07] VITALS: BP 109/79
== END 2021-05-20 13:45 | disposition home or self-care (01) ==
LOC: ER 05:58
DX: R18.8 Other ascites (principal); D64.9 Anemia, unspecified; N17.9 Acute kidney failure, unspecified; I12.9 Hypertensive chronic kidney disease with stage 1 through stage 4 chronic kidney disease, or unspecified chronic kidney disease; N18.9 Chronic kidney disease, unspecified; K74.60 Unspecified cirrhosis of liver; Z20.822 Contact with and (suspected) exposure to COVID-19
CPT/HCPCS: 36415; 49083; 80053; 85025; 85610; 87426; 99285; J3490; Z7610; A4315

== ENCOUNTER 2021-05-26 06:42 | Emergency (ER) | payer MEDICAID ==
[~2021-05-26] VITALS: Ht 170.2 cm; Wt 74.0 kg
[2021-05-26 08:24] LABS: CHLORIDE 104 mEq/L (98-107)
[2021-05-26 08:28] LABS: BASOPHILS % 1.1 % (0.0-2.0); EOSINOPHILS % 4.1 % (0.0-5.0); HEMATOCRIT. 29.9 % (42.0-52.0); HEMOGLOBIN. 10.2 g/dL (14.0-18.0); LYMPHOCYTES % 7.6 % (20.0-50.0); MEAN CORPUSCULAR HEMOGLOBIN 28.7 pg (28.0-32.0); MEAN CORPUSCULAR VOLUME 83.7 fL (80.0-94.0); MEAN PLATELET VOLUME 7.5 fl (7.4-10.4); MONOCYTES % 10.9 % (2.0-8.0); NEUTROPHILS % 76.3 % (40.0-76.0); PARTIAL THROMBOPLASTIN TIME 26.4 sec (23.4-31.0); PLATELET 206 x1000/uL (130-400); PROTHROMBIN TIME 10.9 sec (9.6-11.0); RED BLOOD CELL COUNT 3.57 mill/uL (4.7-6.1); RED CELL DISTRIBUTION WIDTH 15.1 % (11.6-14.6)
[2021-05-26 08:42] LABS: CLARITY URINE CLEAR (CLEAR); COLOR URINE YELLOW (YELLOW); KETONES URINE NEGATIVE (NEGATIVE); LEUKOCYTE ESTERASE URINE NEGATIVE (NEGATIVE); NITRITE URINE NEGATIVE (NEGATIVE); OCCULT BLOOD URINE NEGATIVE (NEGATIVE); PROTEIN URINE NEGATIVE (NEGATIVE); SPECIFIC GRAVITY URINE 1.013 (1.005-1.030); UROBILINOGEN URINE 0.2 E.U./dL (0.2-1.0)
[2021-05-26] MEDS ORDERED: LIDOCAINE HCL 1% 20ML VIAL (Pyxis) INJ ONE (09:11)
[2021-05-26] MEDS ORDERED: SODIUM BICARBONATE 4% (2.4MEQ) 5ML VIAL IV ONE (09:12)
[2021-05-26 11:24] VITALS: BP 117/75
== END 2021-05-26 12:06 | disposition home or self-care (01) ==
LOC: ER 06:42
DX: R18.8 Other ascites (principal); I10 Essential (primary) hypertension; Z79.899 Other long term (current) drug therapy; Z98.890 Other specified postprocedural states
CPT/HCPCS: 36415; 49083; 80053; 81003; 85025; 85610; 85730; 99285; J3490; Z7610

== ENCOUNTER 2021-06-02 06:38 | Emergency (ER) | payer MEDICAID ==
[~2021-06-02] VITALS: Ht 170.2 cm; Wt 77.0 kg
[2021-06-02 08:19] LABS: BASOPHILS % 1.1 % (0.0-2.0); EOSINOPHILS % 3.8 % (0.0-5.0); HEMATOCRIT. 30.8 % (42.0-52.0); HEMOGLOBIN. 10.4 g/dL (14.0-18.0); LYMPHOCYTES % 7.9 % (20.0-50.0); MEAN CORPUSCULAR HEMOGLOBIN 28.1 pg (28.0-32.0); MEAN CORPUSCULAR VOLUME 83.2 fL (80.0-94.0); MEAN PLATELET VOLUME 7.5 fl (7.4-10.4); MONOCYTES % 11.4 % (2.0-8.0); NEUTROPHILS % 75.8 % (40.0-76.0); PLATELET 214 x1000/uL (130-400); RED CELL DISTRIBUTION WIDTH 14.6 % (11.6-14.6)
[2021-06-02 08:24] LABS: CHLORIDE 105 mEq/L (98-107)
[2021-06-02] MEDS ORDERED: SODIUM BICARBONATE 4% (2.4MEQ) 5ML VIAL IV ONE (08:48)
[2021-06-02] MEDS ORDERED: LIDOCAINE HCL 1% 20ML VIAL (Pyxis) INJ ONE (08:48)
[2021-06-02] MEDS ORDERED: CHLO25TA2 PO (10:23)
[2021-06-02] MEDS ORDERED: MULT-1146 PO (10:23)
[2021-06-02 10:45] VITALS: BP 100/60
== END 2021-06-02 11:17 | disposition home or self-care (01) ==
LOC: ER 06:38
DX: R18.8 Other ascites (principal); Z76.0 Encounter for issue of repeat prescription; Z79.899 Other long term (current) drug therapy; Z98.890 Other specified postprocedural states
CPT/HCPCS: 36415; 49083; 80053; 85025; 85610; 99285; J3490; Z7610

== ENCOUNTER 2021-07-07 06:40 | Emergency (ER) | payer MEDICAID ==
[~2021-07-07] VITALS: Ht 170.2 cm; Wt 74.0 kg
[~2021-07-07 06:40] MED LIST changes: +BO1 TP; +MULT-1146 PO
[2021-07-07 07:52] LABS: HEMATOCRIT. 29.5 % (42.0-52.0); MEAN CORPUSCULAR HEMOGLOBIN 27.3 pg (28.0-32.0); MEAN CORPUSCULAR VOLUME 80.8 fL (80.0-94.0); MEAN PLATELET VOLUME 7.2 fl (7.4-10.4); PLATELET 220 x1000/uL (130-400); RED BLOOD CELL COUNT 3.65 mill/uL (4.7-6.1); RED CELL DISTRIBUTION WIDTH 14.8 % (11.6-14.6)
[2021-07-07 08:01] LABS: INR 1.1; PROTHROMBIN TIME 11.4 sec (9.6-11.0)
[2021-07-07 08:04] LABS: CHLORIDE 96 mEq/L (98-107)
[2021-07-07] MEDS ORDERED: POTASSIUM CHLORIDE 20MEQ TABLET SR PO ONE (08:45)
[2021-07-07] MEDS ORDERED: LIDOCAINE HCL 1% 20ML VIAL (Pyxis) INJ ONE (09:05)
[2021-07-07] MEDS ORDERED: SODIUM BICARBONATE 4% (2.4MEQ) 5ML VIAL IV ONE (09:05)
[2021-07-07] MEDS ORDERED: CHLO25TA2 PO (10:35)
[2021-07-07] MEDS ORDERED: FURO40TA5 PO (10:35)
[2021-07-07] MEDS ORDERED: MULT-1146 PO (10:35)
[2021-07-07 11:01] VITALS: BP 117/74
[2021-07-07 14:41] LABS: PLATELET ESTIMATE NORMAL
== END 2021-07-07 11:05 | disposition home or self-care (01) ==
LOC: ER 06:40
DX: R18.8 Other ascites (principal); I10 Essential (primary) hypertension; Z20.822 Contact with and (suspected) exposure to COVID-19; Z76.0 Encounter for issue of repeat prescription; Z79.899 Other long term (current) drug therapy; Z98.890 Other specified postprocedural states
CPT/HCPCS: 36415; 49083; 80053; 85025; 85610; 87426; 99285; J3490; Z7610

== ENCOUNTER 2021-07-14 06:17 | Emergency (ER) | payer MEDICAID ==
[~2021-07-14] VITALS: Ht 170.2 cm; Wt 80.8 kg
[2021-07-14 08:42] LABS: HEMATOCRIT. 32.4 % (42.0-52.0); HEMOGLOBIN. 10.9 g/dL (14.0-18.0); MEAN CORPUSCULAR VOLUME 80.6 fL (80.0-94.0); MEAN PLATELET VOLUME 7.2 fl (7.4-10.4); PLATELET 326 x1000/uL (130-400); RED BLOOD CELL COUNT 4.03 mill/uL (4.7-6.1); RED CELL DISTRIBUTION WIDTH 14.8 % (11.6-14.6)
[2021-07-14 08:47] LABS: CHLORIDE 89 mEq/L (98-107)
[2021-07-14] MEDS ORDERED: POTASSIUM CHLORIDE 10MEQ TABLET SR PO ONE (09:15)
[2021-07-14 09:39] LABS: INR 1.1; PARTIAL THROMBOPLASTIN TIME 29.3 sec (23.4-31.0); PROTHROMBIN TIME 11.6 sec (9.6-11.0)
[2021-07-14] MEDS ORDERED: LIDOCAINE HCL 1% 20ML VIAL (Pyxis) INJ ONE (12:00)
[2021-07-14] MEDS ORDERED: SODIUM BICARBONATE 4% (2.4MEQ) 5ML VIAL IV ONE (12:01)
[2021-07-14 12:17] LABS: PLATELET ESTIMATE NORMAL
[2021-07-14 13:20] VITALS: BP 107/69
== END 2021-07-14 13:31 | disposition home or self-care (01) ==
LOC: ER 06:17
DX: R18.8 Other ascites (principal); K72.90 Hepatic failure, unspecified without coma; I10 Essential (primary) hypertension; Z98.890 Other specified postprocedural states; Z79.899 Other long term (current) drug therapy
CPT/HCPCS: 36415; 49083; 80053; 85025; 85610; 85730; 93005; 99285; J3490; Z7610

== ENCOUNTER 2021-07-21 06:35 | Emergency (ER) | payer MEDICAID ==
[~2021-07-21] VITALS: Ht 170.2 cm; Wt 74.0 kg
[2021-07-21] MEDS ORDERED: SODIUM BICARBONATE 4% (2.4MEQ) 5ML VIAL IV ONE (08:33)
[2021-07-21] MEDS ORDERED: LIDOCAINE HCL 1% 20ML VIAL (Pyxis) INJ ONE (08:33)
[2021-07-21 09:18] LABS: HEMATOCRIT. 31.8 % (42.0-52.0); HEMOGLOBIN. 10.8 g/dL (14.0-18.0); MEAN CORPUSCULAR HEMOGLOBIN 27.1 pg (28.0-32.0); MEAN CORPUSCULAR VOLUME 79.7 fL (80.0-94.0); MEAN PLATELET VOLUME 7.1 fl (7.4-10.4); PLATELET 319 x1000/uL (130-400); RED BLOOD CELL COUNT 3.99 mill/uL (4.7-6.1); RED CELL DISTRIBUTION WIDTH 14.4 % (11.6-14.6)
[2021-07-21 09:23] LABS: CHLORIDE 83 mEq/L (98-107)
[2021-07-21 09:38] LABS: INR 1.1; PROTHROMBIN TIME 11.9 sec (9.6-11.0)
[2021-07-21 13:33] VITALS: BP 108/72
[2021-07-21 14:05] LABS: PLATELET ESTIMATE NORMAL
== END 2021-07-21 13:34 | disposition home or self-care (01) ==
LOC: ER 06:35
DX: R18.8 Other ascites (principal); I10 Essential (primary) hypertension; Z20.822 Contact with and (suspected) exposure to COVID-19; Z79.899 Other long term (current) drug therapy; Z98.890 Other specified postprocedural states
CPT/HCPCS: 36415; 49083; 80053; 85025; 85610; 87426; 99285; J3490; Z7610

== ENCOUNTER 2021-07-28 06:50 | Emergency (ER) | payer MEDICAID ==
[~2021-07-28] VITALS: Ht 170.2 cm; Wt 74.0 kg
[2021-07-28 07:58] LABS: HEMATOCRIT. 29.2 % (42.0-52.0); MEAN CORPUSCULAR HEMOGLOBIN 27.4 pg (28.0-32.0); MEAN CORPUSCULAR VOLUME 80.5 fL (80.0-94.0); PLATELET 245 x1000/uL (130-400); RED BLOOD CELL COUNT 3.63 mill/uL (4.7-6.1); RED CELL DISTRIBUTION WIDTH 14.9 % (11.6-14.6)
[2021-07-28 08:04] LABS: CHLORIDE 83 mEq/L (98-107)
[2021-07-28 08:09] LABS: INR 1.1; PARTIAL THROMBOPLASTIN TIME 30.9 sec (23.4-31.0); PROTHROMBIN TIME 11.7 sec (9.6-11.0)
[2021-07-28 08:27] LABS: CLARITY URINE CLEAR (CLEAR); COLOR URINE YELLOW (YELLOW); KETONES URINE NEGATIVE (NEGATIVE); LEUKOCYTE ESTERASE URINE NEGATIVE (NEGATIVE); NITRITE URINE NEGATIVE (NEGATIVE); OCCULT BLOOD URINE NEGATIVE (NEGATIVE); PROTEIN URINE NEGATIVE (NEGATIVE); SPECIFIC GRAVITY URINE 1.012 (1.005-1.030)
[2021-07-28 09:36] LABS: PLATELET ESTIMATE NORMAL
[2021-07-28] MEDS ORDERED: POTASSIUM CHLORIDE 10MEQ TABLET SR PO ONE (10:15)
[2021-07-28] MEDS ORDERED: KCL 10MEQ/50ML PREMIX 50 ML IV ONE (13:00)
[2021-07-28] MEDS ORDERED: LIDOCAINE HCL 1% 20ML VIAL (Pyxis) INJ ONE (13:35)
[2021-07-28] MEDS ORDERED: SODIUM BICARBONATE 4% (2.4MEQ) 5ML VIAL IV ONE (13:35)
[2021-07-28] MEDS ORDERED: POTA-79 MT (16:08)
[2021-07-28] MEDS ORDERED: POTASSIUM CHLORIDE 20MEQ TABLET SR PO ONE (16:15)
[2021-07-28 16:24] VITALS: BP 111/81
== END 2021-07-28 16:28 | disposition left against medical advice (07) ==
LOC: ER 06:50
DX: R18.8 Other ascites (principal); I10 Essential (primary) hypertension; Z20.822 Contact with and (suspected) exposure to COVID-19; Z79.899 Other long term (current) drug therapy; Z98.890 Other specified postprocedural states
CPT/HCPCS: 36415; 49083; 80053; 81003; 83735; 84132; 85025; 85610; 85730; 87426; 99285; J3480; J3490; Z7610

== ENCOUNTER 2021-08-04 06:30 | Emergency (ER) | payer MEDICAID ==
[~2021-08-04] VITALS: Ht 170.2 cm; Wt 83.7 kg
[~2021-08-04 06:30] MED LIST changes: +POTA-79 MT
[2021-08-04 07:45] LABS: HEMATOCRIT. 29.3 % (42.0-52.0); HEMOGLOBIN. 10.1 g/dL (14.0-18.0); MEAN CORPUSCULAR HEMOGLOBIN 27.3 pg (28.0-32.0); MEAN CORPUSCULAR VOLUME 79.4 fL (80.0-94.0); MEAN PLATELET VOLUME 6.9 fl (7.4-10.4); PLATELET 266 x1000/uL (130-400); RED CELL DISTRIBUTION WIDTH 14.7 % (11.6-14.6)
[2021-08-04 07:53] LABS: CHLORIDE 91 mEq/L (98-107)
[2021-08-04 08:17] LABS: INR 1.1; PARTIAL THROMBOPLASTIN TIME 28.6 sec (23.4-31.0); PROTHROMBIN TIME 11.3 sec (9.6-11.0)
[2021-08-04] MEDS ORDERED: SODIUM BICARBONATE 4% (2.4MEQ) 5ML VIAL IV ONE (10:44)
[2021-08-04] MEDS ORDERED: LIDOCAINE HCL 1% 20ML VIAL (Pyxis) INJ ONE (10:44)
[2021-08-04 12:19] LABS: PLATELET ESTIMATE NORMAL
[2021-08-04 13:46] VITALS: BP 108/62
== END 2021-08-04 13:47 | disposition home or self-care (01) ==
LOC: ER 06:30
DX: R18.8 Other ascites (principal); I10 Essential (primary) hypertension; Z20.822 Contact with and (suspected) exposure to COVID-19; Z79.899 Other long term (current) drug therapy
CPT/HCPCS: 36415; 49083; 80053; 85025; 85610; 85730; 87426; 99285; J3490; Z7610

== ENCOUNTER 2021-08-11 06:11 | Emergency (ER) | payer MEDICAID ==
[~2021-08-11] VITALS: Ht 170.2 cm; Wt 84.3 kg
[~2021-08-11 06:11] MED LIST changes: +MULT-624 PO; -MULT1TAB63 PO
[2021-08-11 11:36] VITALS: BP 165/68
[2021-08-11] MEDS ORDERED: CHLO25TA2 PO (11:54)
[2021-08-11] MEDS ORDERED: FURO40TA5 MT (11:54)
[2021-08-11] MEDS ORDERED: MULT-1146 MT (11:54)
== END 2021-08-11 12:00 | disposition home or self-care (01) ==
LOC: ER 06:11
DX: R18.8 Other ascites (principal); I10 Essential (primary) hypertension
CPT/HCPCS: 99285

== ENCOUNTER 2021-08-26 06:29 | Emergency (ER) | payer MEDICAID ==
[~2021-08-26] VITALS: Ht 170.2 cm; Wt 74.0 kg
[~2021-08-26 06:29] MED LIST changes: +FURO40TA5 MT
[2021-08-26 07:29] LABS: HEMOGLOBIN. 10.1 g/dL (14.0-18.0); MEAN CORPUSCULAR HEMOGLOBIN 26.3 pg (28.0-32.0); MEAN CORPUSCULAR VOLUME 77.9 fL (80.0-94.0); MEAN PLATELET VOLUME 6.8 fl (7.4-10.4); PLATELET 381 x1000/uL (130-400); RED BLOOD CELL COUNT 3.86 mill/uL (4.7-6.1)
[2021-08-26 07:31] LABS: CHLORIDE 87 mEq/L (98-107)
[2021-08-26 07:33] LABS: INR 1.1; PROTHROMBIN TIME 11.4 sec (9.6-11.0)
[2021-08-26] MEDS ORDERED: SODIUM BICARBONATE 4% (2.4MEQ) 5ML VIAL IV ONE (09:30)
[2021-08-26] MEDS ORDERED: LIDOCAINE HCL 1% 20ML VIAL (Pyxis) INJ ONE (09:30)
[2021-08-26 09:55] LABS: PLATELET ESTIMATE NORMAL
[2021-08-26 10:48] VITALS: BP 113/74
[2021-08-26] MEDS ORDERED: POTASSIUM CHLORIDE 20MEQ TABLET SR PO ONE (11:00)
== END 2021-08-26 11:52 | disposition left against medical advice (07) ==
LOC: ER 06:29
DX: N17.9 Acute kidney failure, unspecified (principal); R18.8 Other ascites; E87.6 Hypokalemia; E87.8 Other disorders of electrolyte and fluid balance, not elsewhere classified; I10 Essential (primary) hypertension; K74.60 Unspecified cirrhosis of liver; Z20.822 Contact with and (suspected) exposure to COVID-19
CPT/HCPCS: 36415; 49083; 80053; 85025; 85610; 87426; 99285; J3490; Z7610

== ENCOUNTER 2021-09-16 06:57 | Emergency (ER) | payer MEDICAID ==
[~2021-09-16] VITALS: Ht 170.2 cm; Wt 74.0 kg
[2021-09-16 08:21] LABS: BASOPHILS % 1.2 % (0.0-2.0); HEMATOCRIT. 29.2 % (42.0-52.0); HEMOGLOBIN. 9.8 g/dL (14.0-18.0); LYMPHOCYTES % 7.2 % (20.0-50.0); MEAN CORPUSCULAR HEMOGLOBIN 26.3 pg (28.0-32.0); MEAN CORPUSCULAR VOLUME 78.6 fL (80.0-94.0); MEAN PLATELET VOLUME 7.1 fl (7.4-10.4); MONOCYTES % 11.5 % (2.0-8.0); NEUTROPHILS % 77.1 % (40.0-76.0); PLATELET 245 x1000/uL (130-400); RED BLOOD CELL COUNT 3.71 mill/uL (4.7-6.1); RED CELL DISTRIBUTION WIDTH 15.3 % (11.6-14.6)
[2021-09-16 08:24] LABS: CHLORIDE 96 mEq/L (98-107)
[2021-09-16 08:27] LABS: PROTHROMBIN TIME 11.1 sec (9.6-11.0)
[2021-09-16] MEDS ORDERED: POTASSIUM CHLORIDE 20MEQ TABLET SR PO ONE (09:15)
[2021-09-16] MEDS ORDERED: SODIUM BICARBONATE 4% (2.4MEQ) 5ML VIAL IV ONE (11:50)
[2021-09-16] MEDS ORDERED: LIDOCAINE HCL 1% 30ML VIAL (10MG/ML) ONE (11:50)
[2021-09-16] MEDS ORDERED: POTA-79 MT (11:54)
[2021-09-16] MEDS ORDERED: MULT-1146 PO (13:35)
[2021-09-16 13:43] VITALS: BP 114/62
== END 2021-09-16 13:47 | disposition home or self-care (01) ==
LOC: ER 06:57
DX: R18.8 Other ascites (principal); E87.6 Hypokalemia; I10 Essential (primary) hypertension; K74.60 Unspecified cirrhosis of liver; Z76.0 Encounter for issue of repeat prescription; Z20.822 Contact with and (suspected) exposure to COVID-19
CPT/HCPCS: 36415; 49083; 80053; 83690; 85025; 85610; 87426; 99285; J3490; Z7610

== ENCOUNTER 2021-09-23 06:18 | Emergency (ER) | payer MEDICAID ==
[~2021-09-23] VITALS: Ht 170.2 cm; Wt 73.0 kg
[2021-09-23 09:26] LABS: BASOPHILS % 1.3 % (0.0-2.0); EOSINOPHILS % 3.1 % (0.0-5.0); HEMATOCRIT. 30.8 % (42.0-52.0); HEMOGLOBIN. 10.4 g/dL (14.0-18.0); LYMPHOCYTES % 8.3 % (20.0-50.0); MEAN CORPUSCULAR HEMOGLOBIN 26.4 pg (28.0-32.0); MEAN CORPUSCULAR VOLUME 78.4 fL (80.0-94.0); MEAN PLATELET VOLUME 7.2 fl (7.4-10.4); MONOCYTES % 10.5 % (2.0-8.0); NEUTROPHILS % 76.8 % (40.0-76.0); PLATELET 230 x1000/uL (130-400); RED BLOOD CELL COUNT 3.93 mill/uL (4.7-6.1); RED CELL DISTRIBUTION WIDTH 16.3 % (11.6-14.6)
[2021-09-23 09:35] LABS: CHLORIDE 98 mEq/L (98-107)
[2021-09-23 09:39] LABS: PROTHROMBIN TIME 11.2 sec (9.6-11.0)
[2021-09-23] MEDS ORDERED: LIDOCAINE HCL 1% 30ML VIAL (10MG/ML) ONE (10:46)
[2021-09-23] MEDS ORDERED: SODIUM BICARBONATE 4% (2.4MEQ) 5ML VIAL IV ONE (10:46)
[2021-09-23 12:59] VITALS: BP 109/72
== END 2021-09-23 13:06 | disposition home or self-care (01) ==
LOC: ER 06:18
DX: R18.8 Other ascites (principal); I10 Essential (primary) hypertension; K76.9 Liver disease, unspecified; K74.60 Unspecified cirrhosis of liver; Z20.822 Contact with and (suspected) exposure to COVID-19
CPT/HCPCS: 36415; 49083; 80053; 83690; 85025; 85610; 87426; 99285; J3490; Z7610

== ENCOUNTER 2021-09-29 06:11 | Emergency (ER) | payer MEDICAID ==
[~2021-09-29] VITALS: Ht 170.2 cm; Wt 83.5 kg
[2021-09-29 06:18] VITALS: BP 135/81
[2021-09-29 10:24] LABS: CHLORIDE 100 mEq/L (98-107)
[2021-09-29 10:25] LABS: BASOPHILS % 0.9 % (0.0-2.0); EOSINOPHILS % 3.5 % (0.0-5.0); HEMATOCRIT. 30.8 % (42.0-52.0); HEMOGLOBIN. 10.3 g/dL (14.0-18.0); MEAN CORPUSCULAR HEMOGLOBIN 27.3 pg (28.0-32.0); MEAN CORPUSCULAR VOLUME 81.7 fL (80.0-94.0); MEAN PLATELET VOLUME 7.3 fl (7.4-10.4); MONOCYTES % 9.2 % (2.0-8.0); NEUTROPHILS % 77.4 % (40.0-76.0); PLATELET 208 x1000/uL (130-400); PROTHROMBIN TIME 10.6 sec (9.6-11.0); RED BLOOD CELL COUNT 3.77 mill/uL (4.7-6.1); RED CELL DISTRIBUTION WIDTH 17.7 % (11.6-14.6)
[2021-09-29] MEDS ORDERED: LIDOCAINE HCL 1% 30ML VIAL (10MG/ML) ONE (11:07)
[2021-09-29] MEDS ORDERED: SODIUM BICARBONATE 4% (2.4MEQ) 5ML VIAL IV ONE (11:07)
[2021-09-29] MEDS ORDERED: POTA-79 MT (13:55)
== END 2021-09-29 14:07 | disposition home or self-care (01) ==
LOC: ER 06:11
DX: R18.8 Other ascites (principal); I10 Essential (primary) hypertension; Z79.899 Other long term (current) drug therapy; Z20.822 Contact with and (suspected) exposure to COVID-19
CPT/HCPCS: 36415; 49083; 80053; 83690; 85025; 85610; 87426; 99284; J3490; Z7610

== ENCOUNTER 2021-10-06 06:53 | Emergency (ER) | payer MEDICAID ==
[~2021-10-06] VITALS: Ht 170.2 cm; Wt 74.0 kg
[2021-10-06 09:55] LABS: BASOPHILS % 0.9 % (0.0-2.0); EOSINOPHILS % 2.3 % (0.0-5.0); HEMATOCRIT. 33.6 % (42.0-52.0); HEMOGLOBIN. 11.3 g/dL (14.0-18.0); MEAN CORPUSCULAR HEMOGLOBIN 27.6 pg (28.0-32.0); MEAN PLATELET VOLUME 7.5 fl (7.4-10.4); MONOCYTES % 10.1 % (2.0-8.0); NEUTROPHILS % 78.7 % (40.0-76.0); PLATELET 189 x1000/uL (130-400); RED CELL DISTRIBUTION WIDTH 19.3 % (11.6-14.6)
[2021-10-06 10:04] LABS: CHLORIDE 101 mEq/L (98-107)
[2021-10-06 10:26] LABS: PARTIAL THROMBOPLASTIN TIME 27.9 sec (23.4-31.0); PROTHROMBIN TIME 10.7 sec (9.6-11.0)
[2021-10-06] MEDS ORDERED: POTASSIUM CHLORIDE 20MEQ TABLET SR PO ONE (10:45)
[2021-10-06] MEDS ORDERED: SODIUM BICARBONATE 4% (2.4MEQ) 5ML VIAL IV ONE (10:58)
[2021-10-06] MEDS ORDERED: LIDOCAINE HCL 1% 10 MG/ML 10ML VIAL ONE (10:58)
[2021-10-06 13:20] VITALS: BP 133/88
== END 2021-10-06 13:23 | disposition home or self-care (01) ==
LOC: ER 06:53
DX: R18.8 Other ascites (principal); I10 Essential (primary) hypertension; Z20.822 Contact with and (suspected) exposure to COVID-19; Z79.899 Other long term (current) drug therapy; Z98.890 Other specified postprocedural states
CPT/HCPCS: 36415; 49083; 80053; 83690; 83735; 85025; 85610; 85730; 87426; 99285; J3490; Z7610

== ENCOUNTER 2021-10-14 07:00 | Emergency (ER) | payer MEDICAID ==
[~2021-10-14] VITALS: Ht 170.2 cm; Wt 88.6 kg
[2021-10-14 08:52] LABS: BASOPHILS % 0.9 % (0.0-2.0); EOSINOPHILS % 1.6 % (0.0-5.0); HEMOGLOBIN. 10.2 g/dL (14.0-18.0); LYMPHOCYTES % 7.9 % (20.0-50.0); MEAN CORPUSCULAR HEMOGLOBIN 28.1 pg (28.0-32.0); MEAN PLATELET VOLUME 7.3 fl (7.4-10.4); MONOCYTES % 11.5 % (2.0-8.0); NEUTROPHILS % 78.1 % (40.0-76.0); PLATELET 184 x1000/uL (130-400); RED BLOOD CELL COUNT 3.62 mill/uL (4.7-6.1); RED CELL DISTRIBUTION WIDTH 19.4 % (11.6-14.6)
[2021-10-14 08:54] LABS: CHLORIDE 99 mEq/L (98-107)
[2021-10-14 08:57] LABS: PROTHROMBIN TIME 10.9 sec (9.6-11.0)
[2021-10-14] MEDS: KCL 20MEQ/100ML PREMIX 100 ML IV SCH ×2 (09:58→12:13)
[2021-10-14] MEDS ORDERED: POTASSIUM CHLORIDE 20MEQ TABLET SR PO SCH (10:00)
[2021-10-14] MEDS ORDERED: MAGNESIUM 2 G PREMIX 50 ML IV SCH (10:00)
[2021-10-14 11:23] LABS: CLARITY URINE CLEAR (CLEAR); COLOR URINE YELLOW (YELLOW); KETONES URINE NEGATIVE (NEGATIVE); LEUKOCYTE ESTERASE URINE NEGATIVE (NEGATIVE); NITRITE URINE NEGATIVE (NEGATIVE); OCCULT BLOOD URINE NEGATIVE (NEGATIVE); PROTEIN URINE NEGATIVE (NEGATIVE); UROBILINOGEN URINE 0.2 E.U./dL (0.2-1.0)
[2021-10-14] MEDS ORDERED: LIDOCAINE HCL 1% 10 MG/ML 10ML VIAL ONE (12:35)
[2021-10-14] MEDS ORDERED: SODIUM BICARBONATE 4% (2.4MEQ) 5ML VIAL IV ONE (12:35)
[2021-10-14 15:36] VITALS: BP 122/62
== END 2021-10-14 15:39 | disposition home or self-care (01) ==
LOC: ER 07:00
DX: K70.31 Alcoholic cirrhosis of liver with ascites (principal); I10 Essential (primary) hypertension; Z20.822 Contact with and (suspected) exposure to COVID-19
CPT/HCPCS: 36415; 49083; 80053; 81003; 83690; 85025; 85610; 87426; 99285; J3475; J3480; J3490; Z7610

== ENCOUNTER 2021-10-20 07:29 | Emergency (ER) | payer MEDICAID ==
[~2021-10-20] VITALS: Ht 170.2 cm; Wt 74.0 kg
[2021-10-20 08:45] LABS: EOSINOPHILS % 4.1 % (0.0-5.0); HEMATOCRIT. 33.5 % (42.0-52.0); MEAN CORPUSCULAR HEMOGLOBIN 27.7 pg (28.0-32.0); MEAN CORPUSCULAR VOLUME 84.4 fL (80.0-94.0); MEAN PLATELET VOLUME 7.5 fl (7.4-10.4); MONOCYTES % 11.6 % (2.0-8.0); NEUTROPHILS % 73.3 % (40.0-76.0); PLATELET 208 x1000/uL (130-400); RED BLOOD CELL COUNT 3.97 mill/uL (4.7-6.1); RED CELL DISTRIBUTION WIDTH 19.8 % (11.6-14.6)
[2021-10-20 08:54] LABS: PROTHROMBIN TIME 10.8 sec (9.6-11.0)
[2021-10-20] MEDS ORDERED: SODIUM BICARBONATE 4% (2.4MEQ) 5ML VIAL IV ONE (09:38)
[2021-10-20] MEDS ORDERED: LIDOCAINE HCL 1% 10 MG/ML 10ML VIAL ONE (09:38)
[2021-10-20] MEDS ORDERED: POTA20TA82 MT (12:07)
[2021-10-20] MEDS ORDERED: FURO-151 MT (12:07)
[2021-10-20 12:17] VITALS: BP 99/58
== END 2021-10-20 12:38 | disposition home or self-care (01) ==
LOC: ER 07:29
DX: R18.8 Other ascites (principal); I10 Essential (primary) hypertension; Z20.822 Contact with and (suspected) exposure to COVID-19; Z79.899 Other long term (current) drug therapy; Z98.890 Other specified postprocedural states
CPT/HCPCS: 36415; 49083; 80048; 85025; 85610; 87426; 93005; 99285; J3490; Z7610

== ENCOUNTER 2021-10-27 07:53 | Emergency (ER) | payer MEDICAID ==
[~2021-10-27] VITALS: Ht 170.2 cm; Wt 88.4 kg
[~2021-10-27 07:53] MED LIST changes: +POTA20TA82 MT
[2021-10-27 09:05] LABS: HEMATOCRIT. 33.9 % (42.0-52.0); HEMOGLOBIN. 11.1 g/dL (14.0-18.0); MEAN CORPUSCULAR HEMOGLOBIN 27.7 pg (28.0-32.0); MEAN CORPUSCULAR VOLUME 84.9 fL (80.0-94.0); PLATELET 254 x1000/uL (130-400); RED BLOOD CELL COUNT 3.99 mill/uL (4.7-6.1); RED CELL DISTRIBUTION WIDTH 18.1 % (11.6-14.6)
[2021-10-27 09:10] LABS: CHLORIDE 97 mEq/L (98-107)
[2021-10-27 09:13] LABS: PROTHROMBIN TIME 10.8 sec (9.6-11.0)
[2021-10-27 10:15] LABS: PLATELET ESTIMATE NORMAL
[2021-10-27] MEDS ORDERED: LIDOCAINE HCL 1% 10 MG/ML 10ML VIAL ONE (10:48)
[2021-10-27] MEDS ORDERED: SODIUM BICARBONATE 4% (2.4MEQ) 5ML VIAL IV ONE (10:48)
[2021-10-27 12:50] VITALS: BP 107/72
== END 2021-10-27 12:55 | disposition home or self-care (01) ==
LOC: ER 07:53
DX: R18.8 Other ascites (principal); I10 Essential (primary) hypertension; Z20.822 Contact with and (suspected) exposure to COVID-19; Z79.899 Other long term (current) drug therapy; Z98.890 Other specified postprocedural states
CPT/HCPCS: 36415; 49083; 80053; 85025; 85610; 87426; 99285; J3490; Z7610

== ENCOUNTER 2021-11-03 07:15 | Emergency (ER) | payer MEDICAID ==
[~2021-11-03] VITALS: Ht 170.2 cm; Wt 74.0 kg
[2021-11-03 08:22] LABS: HEMATOCRIT. 34.4 % (42.0-52.0); HEMOGLOBIN. 11.6 g/dL (14.0-18.0); MEAN CORPUSCULAR HEMOGLOBIN 28.1 pg (28.0-32.0); MEAN CORPUSCULAR VOLUME 82.9 fL (80.0-94.0); MEAN PLATELET VOLUME 6.6 fl (7.4-10.4); PLATELET 310 x1000/uL (130-400); RED BLOOD CELL COUNT 4.14 mill/uL (4.7-6.1); RED CELL DISTRIBUTION WIDTH 16.8 % (11.6-14.6)
[2021-11-03 08:27] LABS: CHLORIDE 95 mEq/L (98-107)
[2021-11-03 09:14] LABS: PROTHROMBIN TIME 11.2 sec (9.6-11.0)
[2021-11-03 09:43] LABS: PLATELET ESTIMATE NORMAL
[2021-11-03] MEDS ORDERED: LIDOCAINE HCL 1% 10 MG/ML 10ML VIAL ONE (09:47)
[2021-11-03] MEDS ORDERED: SODIUM BICARBONATE 4% (2.4MEQ) 5ML VIAL IV ONE (09:47)
[2021-11-03 11:54] VITALS: BP 110/69
== END 2021-11-03 12:36 | disposition home or self-care (01) ==
LOC: ER 07:15
DX: R18.8 Other ascites (principal); I10 Essential (primary) hypertension; Z20.822 Contact with and (suspected) exposure to COVID-19; Z79.899 Other long term (current) drug therapy; Z98.890 Other specified postprocedural states
CPT/HCPCS: 36415; 49083; 80053; 85025; 85610; 87426; 99285; J3490; Z7610

== ENCOUNTER 2021-11-10 06:43 | Emergency (ER) | payer MEDICAID ==
[~2021-11-10] VITALS: Ht 170.2 cm; Wt 87.2 kg
[2021-11-10 10:05] LABS: HEMATOCRIT. 33.7 % (42.0-52.0); HEMOGLOBIN. 11.3 g/dL (14.0-18.0); MEAN CORPUSCULAR HEMOGLOBIN 28.1 pg (28.0-32.0); MEAN CORPUSCULAR VOLUME 83.9 fL (80.0-94.0); MEAN PLATELET VOLUME 6.4 fl (7.4-10.4); PLATELET 297 x1000/uL (130-400); RED BLOOD CELL COUNT 4.01 mill/uL (4.7-6.1); RED CELL DISTRIBUTION WIDTH 16.1 % (11.6-14.6)
[2021-11-10 10:10] LABS: CHLORIDE 102 mEq/L (98-107)
[2021-11-10 10:14] LABS: ETHANOL BLOOD < 10 mg/dL
[2021-11-10 10:15] LABS: PROTHROMBIN TIME 10.9 sec (9.6-11.0)
[2021-11-10] MEDS ORDERED: CHLO25TA2 PO (10:19)
[2021-11-10 10:50] LABS: PLATELET ESTIMATE NORMAL
[2021-11-10] MEDS ORDERED: SODIUM BICARBONATE 4% (2.4MEQ) 5ML VIAL IV ONE (12:11)
[2021-11-10] MEDS ORDERED: LIDOCAINE HCL 1% 10 MG/ML 10ML VIAL ONE (12:11)
[2021-11-10 14:00] VITALS: BP 132/60
== END 2021-11-10 14:08 | disposition home or self-care (01) ==
LOC: ER 06:43
DX: R18.8 Other ascites (principal); I10 Essential (primary) hypertension; Z20.822 Contact with and (suspected) exposure to COVID-19; Z79.899 Other long term (current) drug therapy
CPT/HCPCS: 36415; 49083; 80053; 80320; 83690; 85025; 85610; 87426; 99285; J3490; Z7610; 99284; G0480

== ENCOUNTER 2021-11-17 06:52 | Emergency (ER) | payer MEDICAID ==
[~2021-11-17] VITALS: Ht 170.2 cm; Wt 73.0 kg
[2021-11-17 08:56] LABS: HEMATOCRIT. 36.3 % (42.0-52.0); HEMOGLOBIN. 12.1 g/dL (14.0-18.0); MEAN CORPUSCULAR HEMOGLOBIN 28.2 pg (28.0-32.0); MEAN CORPUSCULAR VOLUME 84.8 fL (80.0-94.0); PLATELET 260 x1000/uL (130-400); RED BLOOD CELL COUNT 4.28 mill/uL (4.7-6.1); RED CELL DISTRIBUTION WIDTH 15.9 % (11.6-14.6)
[2021-11-17 09:04] LABS: CHLORIDE 103 mEq/L (98-107)
[2021-11-17 09:06] LABS: PROTHROMBIN TIME 10.9 sec (9.6-11.0)
[2021-11-17] MEDS ORDERED: LIDOCAINE HCL 1% 20ML VIAL (Pyxis) INJ ONE (10:34)
[2021-11-17] MEDS ORDERED: SODIUM BICARBONATE 4% (2.4MEQ) 5ML VIAL IV ONE (10:34)
[2021-11-17 12:36] VITALS: BP 121/87
[2021-11-17 12:42] LABS: PLATELET ESTIMATE NORMAL
== END 2021-11-17 12:38 | disposition home or self-care (01) ==
LOC: ER 06:52
DX: R18.8 Other ascites (principal); N17.9 Acute kidney failure, unspecified; I10 Essential (primary) hypertension; Z20.822 Contact with and (suspected) exposure to COVID-19; Z79.899 Other long term (current) drug therapy
CPT/HCPCS: 36415; 49083; 80053; 85025; 85610; 87426; 99284; J3490; Z7610

== ENCOUNTER 2021-11-24 06:51 | Emergency (ER) | payer MEDICAID ==
[~2021-11-24] VITALS: Ht 170.2 cm; Wt 85.2 kg
[2021-11-24] MEDS ORDERED: LIDOCAINE HCL 1% 20ML VIAL (Pyxis) INJ MC STA (07:42)
[2021-11-24 12:30] VITALS: BP 124/82
[2021-11-24 13:40] LABS: HEMATOCRIT. 36.9 % (42.0-52.0); HEMOGLOBIN. 12.7 g/dL (14.0-18.0); MEAN CORPUSCULAR HEMOGLOBIN 28.5 pg (28.0-32.0); MEAN CORPUSCULAR VOLUME 83.1 fL (80.0-94.0); MEAN PLATELET VOLUME 7.4 fl (7.4-10.4); PLATELET 241 x1000/uL (130-400); RED BLOOD CELL COUNT 4.44 mill/uL (4.7-6.1); RED CELL DISTRIBUTION WIDTH 15.6 % (11.6-14.6)
[2021-11-24 13:49] LABS: PROTHROMBIN TIME 10.9 sec (9.6-11.0)
[2021-11-24 14:27] LABS: PLATELET ESTIMATE NORMAL
[2021-11-24] MEDS ORDERED: LIDOCAINE HCL 1% 20ML VIAL (Pyxis) INJ ONE (14:37)
[2021-11-24] MEDS ORDERED: SODIUM BICARBONATE 4% (2.4MEQ) 5ML VIAL IV ONE (14:37)
[2021-11-24] MEDS ORDERED: ALBUMIN HUMAN 25GM/100ML (25%) IV ONE (14:45)
== END 2021-11-24 17:16 | disposition home or self-care (01) ==
LOC: ER 06:51
DX: R18.8 Other ascites (principal); R14.0 Abdominal distension (gaseous); R79.1 Abnormal coagulation profile; Z20.822 Contact with and (suspected) exposure to COVID-19; Z79.899 Other long term (current) drug therapy; I10 Essential (primary) hypertension; D64.9 Anemia, unspecified
CPT/HCPCS: 36415; 49083; 80048; 85025; 85610; 87426; 93005; 99285; J3490; Z7610; P9047

== ENCOUNTER 2021-12-01 06:52 | Emergency (ER) | payer MEDICAID ==
[~2021-12-01] VITALS: Ht 170.2 cm; Wt 86.1 kg
[2021-12-01 07:16] VITALS: BP 129/82
[2021-12-01 08:37] LABS: HEMATOCRIT. 35.7 % (42.0-52.0); HEMOGLOBIN. 12.1 g/dL (14.0-18.0); MEAN CORPUSCULAR HEMOGLOBIN 28.1 pg (28.0-32.0); MEAN CORPUSCULAR VOLUME 83.3 fL (80.0-94.0); PLATELET 202 x1000/uL (130-400); RED BLOOD CELL COUNT 4.29 mill/uL (4.7-6.1); RED CELL DISTRIBUTION WIDTH 15.4 % (11.6-14.6)
[2021-12-01 08:45] LABS: CHLORIDE 99 mEq/L (98-107); PROTHROMBIN TIME 10.9 sec (9.6-11.0)
[2021-12-01 09:09] LABS: PLATELET ESTIMATE NORMAL
[2021-12-01] MEDS ORDERED: LIDOCAINE HCL 1% 20ML VIAL (Pyxis) INJ ONE (10:54)
[2021-12-01] MEDS ORDERED: SODIUM BICARBONATE 4% (2.4MEQ) 5ML VIAL IV ONE (10:56)
== END 2021-12-01 13:35 | disposition home or self-care (01) ==
LOC: ER 06:52
DX: R18.8 Other ascites (principal); I10 Essential (primary) hypertension; Z20.822 Contact with and (suspected) exposure to COVID-19; Z79.899 Other long term (current) drug therapy
CPT/HCPCS: 36415; 49083; 80053; 85025; 85610; 87426; 99285; J3490; Z7610; 99284

== ENCOUNTER 2021-12-08 07:21 | Emergency (ER) | payer MEDICAID ==
[~2021-12-08] VITALS: Ht 167.6 cm; Wt 86.6 kg
[2021-12-08 07:40] VITALS: BP 122/87
[2021-12-08 08:53] LABS: BASOPHILS % 1.2 % (0.0-2.0); EOSINOPHILS % 2.6 % (0.0-5.0); HEMOGLOBIN. 12.1 g/dL (14.0-18.0); LYMPHOCYTES % 7.3 % (20.0-50.0); MEAN CORPUSCULAR HEMOGLOBIN 28.5 pg (28.0-32.0); MEAN CORPUSCULAR VOLUME 82.7 fL (80.0-94.0); MEAN PLATELET VOLUME 7.7 fl (7.4-10.4); NEUTROPHILS % 76.9 % (40.0-76.0); PLATELET 204 x1000/uL (130-400); RED BLOOD CELL COUNT 4.23 mill/uL (4.7-6.1); RED CELL DISTRIBUTION WIDTH 15.2 % (11.6-14.6)
[2021-12-08 08:58] LABS: CHLORIDE 100 mEq/L (98-107)
[2021-12-08 09:05] LABS: PROTHROMBIN TIME 10.6 sec (9.6-11.0)
== END 2021-12-08 15:18 | disposition home or self-care (01) ==
LOC: ER 07:21
DX: R18.8 Other ascites (principal); I10 Essential (primary) hypertension; Z20.822 Contact with and (suspected) exposure to COVID-19; Z79.899 Other long term (current) drug therapy
CPT/HCPCS: 36415; 49083; 80053; 85025; 85610; 87426; 93005; 99285; Z7610

== ENCOUNTER 2021-12-15 07:17 | Emergency (ER) | payer MEDICAID ==
[~2021-12-15] VITALS: Ht 170.2 cm; Wt 67.0 kg
[2021-12-15 07:27] VITALS: BP 137/86
[2021-12-15 08:34] LABS: HEMATOCRIT. 36.4 % (42.0-52.0); HEMOGLOBIN. 12.6 g/dL (14.0-18.0); MEAN CORPUSCULAR HEMOGLOBIN 29.1 pg (28.0-32.0); MEAN CORPUSCULAR VOLUME 84.1 fL (80.0-94.0); MEAN PLATELET VOLUME 7.5 fl (7.4-10.4); PLATELET 193 x1000/uL (130-400); RED BLOOD CELL COUNT 4.33 mill/uL (4.7-6.1); RED CELL DISTRIBUTION WIDTH 15.5 % (11.6-14.6)
[2021-12-15 08:35] LABS: CHLORIDE 104 mEq/L (98-107)
[2021-12-15 09:49] LABS: PROTHROMBIN TIME 10.7 sec (9.6-11.0)
[2021-12-15] MEDS ORDERED: LIDOCAINE HCL 1% 20ML VIAL (Pyxis) INJ ONE (10:21)
[2021-12-15] MEDS ORDERED: SODIUM BICARBONATE 4% (2.4MEQ) 5ML VIAL IV ONE (10:22)
[2021-12-15] MEDS ORDERED: FURO-151 MT (13:01)
[2021-12-15 13:16] LABS: PLATELET ESTIMATE NORMAL
== END 2021-12-15 13:05 | disposition home or self-care (01) ==
LOC: ER 07:17
DX: R18.8 Other ascites (principal); N28.9 Disorder of kidney and ureter, unspecified; Z20.822 Contact with and (suspected) exposure to COVID-19
CPT/HCPCS: 36415; 49083; 80053; 85025; 85610; 87426; 99285; J3490; Z7610

== ENCOUNTER 2021-12-22 06:57 | Emergency (ER) | payer MEDICAID ==
[~2021-12-22] VITALS: Ht 170.2 cm; Wt 74.0 kg
[2021-12-22 07:09] VITALS: BP 135/87
[2021-12-22 08:38] LABS: HEMATOCRIT. 36.4 % (42.0-52.0); HEMOGLOBIN. 12.5 g/dL (14.0-18.0); MEAN CORPUSCULAR HEMOGLOBIN 28.6 pg (28.0-32.0); MEAN CORPUSCULAR VOLUME 83.5 fL (80.0-94.0); MEAN PLATELET VOLUME 7.7 fl (7.4-10.4); PLATELET 191 x1000/uL (130-400); RED BLOOD CELL COUNT 4.36 mill/uL (4.7-6.1); RED CELL DISTRIBUTION WIDTH 15.4 % (11.6-14.6)
[2021-12-22 08:46] LABS: CHLORIDE 102 mEq/L (98-107)
[2021-12-22 09:06] LABS: PROTHROMBIN TIME 10.8 sec (9.6-11.0)
[2021-12-22] MEDS ORDERED: LIDOCAINE HCL 1% 20ML VIAL (Pyxis) INJ ONE (09:42)
[2021-12-22] MEDS ORDERED: SODIUM BICARBONATE 4% (2.4MEQ) 5ML VIAL IV ONE (09:42)
[2021-12-22 10:20] LABS: PLATELET ESTIMATE NORMAL
[2021-12-22] MEDS ORDERED: POTA20TA82 MT (11:45)
[2021-12-29] MEDS ORDERED: MULT-1146 MT (12:45)
== END 2021-12-22 12:58 | disposition home or self-care (01) ==
LOC: ER 06:57
DX: K74.60 Unspecified cirrhosis of liver (principal); I10 Essential (primary) hypertension; Z20.822 Contact with and (suspected) exposure to COVID-19; Z79.899 Other long term (current) drug therapy
CPT/HCPCS: 36415; 49083; 80053; 83735; 85025; 85610; 87426; 99285; J3490; Z7610; 99284

== ENCOUNTER 2022-01-05 06:57 | Emergency (ER) | payer MEDICAID ==
[~2022-01-05] VITALS: Ht 170.2 cm; Wt 72.0 kg
[2022-01-05 07:14] VITALS: BP 126/89
[2022-01-05 09:03] LABS: HEMATOCRIT. 36.8 % (42.0-52.0); HEMOGLOBIN. 12.4 g/dL (14.0-18.0); MEAN CORPUSCULAR HEMOGLOBIN 28.5 pg (28.0-32.0); MEAN CORPUSCULAR VOLUME 84.6 fL (80.0-94.0); MEAN PLATELET VOLUME 7.6 fl (7.4-10.4); PLATELET 193 x1000/uL (130-400); RED BLOOD CELL COUNT 4.34 mill/uL (4.7-6.1); RED CELL DISTRIBUTION WIDTH 15.5 % (11.6-14.6)
[2022-01-05 09:10] LABS: PROTHROMBIN TIME 10.9 sec (9.6-11.0)
[2022-01-05 09:55] LABS: ATYPICAL LYMPHOCYTES 1
[2022-01-05 09:59] LABS: PLATELET ESTIMATE NORMAL
[2022-01-05] MEDS ORDERED: LIDOCAINE HCL 1% 20ML VIAL (Pyxis) INJ ONE (12:45)
[2022-01-05] MEDS ORDERED: SODIUM BICARBONATE 4% (2.4MEQ) 5ML VIAL IV ONE (12:45)
== END 2022-01-05 14:56 | disposition home or self-care (01) ==
LOC: ER 06:57
DX: R18.8 Other ascites (principal); I10 Essential (primary) hypertension; Z79.899 Other long term (current) drug therapy; Z20.822 Contact with and (suspected) exposure to COVID-19
CPT/HCPCS: 36415; 49083; 85025; 85610; 87426; 99285; J3490; Z7610

== ENCOUNTER 2022-01-12 07:01 | Emergency (ER) | payer MEDICAID ==
[~2022-01-12] VITALS: Ht 170.2 cm; Wt 89.0 kg
[2022-01-12 09:28] LABS: HEMATOCRIT. 38.4 % (42.0-52.0); MEAN CORPUSCULAR HEMOGLOBIN 28.8 pg (28.0-32.0); MEAN PLATELET VOLUME 7.7 fl (7.4-10.4); PLATELET 173 x1000/uL (130-400); RED BLOOD CELL COUNT 4.52 mill/uL (4.7-6.1); RED CELL DISTRIBUTION WIDTH 15.3 % (11.6-14.6)
[2022-01-12 09:34] LABS: CHLORIDE 104 mEq/L (98-107)
[2022-01-12 09:38] LABS: PROTHROMBIN TIME 10.9 sec (9.6-11.0)
[2022-01-12 10:25] LABS: PLATELET ESTIMATE NORMAL
[2022-01-12] MEDS ORDERED: LIDOCAINE HCL 1% 20ML VIAL (Pyxis) INJ ONE (14:26)
[2022-01-12] MEDS ORDERED: SODIUM BICARBONATE 4% (2.4MEQ) 5ML VIAL IV ONE (14:27)
[2022-01-12 17:08] VITALS: BP 126/70
== END 2022-01-12 17:10 | disposition home or self-care (01) ==
LOC: ER 07:01
DX: R18.8 Other ascites (principal); I10 Essential (primary) hypertension; Z20.822 Contact with and (suspected) exposure to COVID-19; Z98.890 Other specified postprocedural states; Z79.899 Other long term (current) drug therapy
CPT/HCPCS: 36415; 49083; 80053; 85025; 85610; 87426; 99285; J3490; Z7610; 99284

== ENCOUNTER 2022-01-19 07:23 | Emergency (ER) | payer MEDICAID ==
[~2022-01-19] VITALS: Ht 170.2 cm; Wt 72.0 kg
[2022-01-19 07:57] VITALS: BP 119/81
[2022-01-19 08:15] LABS: HEMATOCRIT. 37.4 % (42.0-52.0); HEMOGLOBIN. 12.9 g/dL (14.0-18.0); MEAN CORPUSCULAR HEMOGLOBIN 28.7 pg (28.0-32.0); MEAN CORPUSCULAR VOLUME 83.5 fL (80.0-94.0); MEAN PLATELET VOLUME 7.3 fl (7.4-10.4); PLATELET 169 x1000/uL (130-400); RED BLOOD CELL COUNT 4.48 mill/uL (4.7-6.1); RED CELL DISTRIBUTION WIDTH 15.4 % (11.6-14.6)
[2022-01-19 08:25] LABS: CHLORIDE 104 mEq/L (98-107)
[2022-01-19 08:29] LABS: PROTHROMBIN TIME 10.7 sec (9.6-11.0)
[2022-01-19 09:03] LABS: PLATELET ESTIMATE NORMAL
[2022-01-19] MEDS ORDERED: LIDOCAINE HCL 1% 10 MG/ML 10ML VIAL ONE (10:16)
[2022-01-19] MEDS ORDERED: SODIUM BICARBONATE 4% (2.4MEQ) 5ML VIAL IV ONE (10:16)
== END 2022-01-19 13:08 | disposition home or self-care (01) ==
LOC: ER 07:23
DX: R18.8 Other ascites (principal); I10 Essential (primary) hypertension; Z20.822 Contact with and (suspected) exposure to COVID-19; Z79.899 Other long term (current) drug therapy; Z98.890 Other specified postprocedural states
CPT/HCPCS: 36415; 49083; 80053; 85025; 85610; 87426; 99285; J3490; Z7610

== ENCOUNTER 2022-01-26 06:55 | Emergency (ER) | payer MEDICAID ==
[~2022-01-26] VITALS: Ht 170.2 cm; Wt 72.0 kg
[2022-01-26 08:19] LABS: BASOPHILS % 0.8 % (0.0-2.0); EOSINOPHILS % 2.4 % (0.0-5.0); HEMOGLOBIN. 12.1 g/dL (14.0-18.0); LYMPHOCYTES % 8.2 % (20.0-50.0); MEAN CORPUSCULAR HEMOGLOBIN 29.1 pg (28.0-32.0); MEAN CORPUSCULAR VOLUME 83.9 fL (80.0-94.0); MEAN PLATELET VOLUME 7.5 fl (7.4-10.4); NEUTROPHILS % 75.6 % (40.0-76.0); PLATELET 175 x1000/uL (130-400); RED BLOOD CELL COUNT 4.17 mill/uL (4.7-6.1); RED CELL DISTRIBUTION WIDTH 14.9 % (11.6-14.6)
[2022-01-26 08:26] LABS: CHLORIDE 104 mEq/L (98-107)
[2022-01-26 08:39] LABS: PROTHROMBIN TIME 10.8 sec (9.6-11.0)
[2022-01-26 09:23] LABS: CLARITY URINE CLEAR (CLEAR); COLOR URINE YELLOW (YELLOW); KETONES URINE NEGATIVE (NEGATIVE); LEUKOCYTE ESTERASE URINE TRACE (NEGATIVE); NITRITE URINE NEGATIVE (NEGATIVE); OCCULT BLOOD URINE TRACE (NEGATIVE); PH URINE 5.5 (4.5-8.0); PROTEIN URINE NEGATIVE (NEGATIVE); SPECIFIC GRAVITY URINE 1.021 (1.005-1.030)
[2022-01-26] MEDS ORDERED: LIDOCAINE HCL 1% 10 MG/ML 10ML VIAL ONE (10:00)
[2022-01-26] MEDS ORDERED: SODIUM BICARBONATE 4% (2.4MEQ) 5ML VIAL IV ONE (10:01)
[2022-01-26 10:21] VITALS: BP 124/88
== END 2022-01-26 13:34 | disposition home or self-care (01) ==
LOC: ER 06:55
DX: R18.8 Other ascites (principal); K74.60 Unspecified cirrhosis of liver; I10 Essential (primary) hypertension; Z20.822 Contact with and (suspected) exposure to COVID-19; Z79.899 Other long term (current) drug therapy; Z98.890 Other specified postprocedural states
CPT/HCPCS: 36415; 49083; 80053; 81003; 85025; 85610; 85730; 87426; 99285; J3490; Z7610

== ENCOUNTER 2022-02-02 07:23 | Emergency (ER) | payer MEDICAID ==
[~2022-02-02] VITALS: Ht 170.2 cm; Wt 92.5 kg
[2022-02-02 08:44] LABS: BASOPHILS % 1.2 % (0.0-2.0); EOSINOPHILS % 2.3 % (0.0-5.0); HEMATOCRIT. 36.8 % (42.0-52.0); HEMOGLOBIN. 12.5 g/dL (14.0-18.0); LYMPHOCYTES % 7.7 % (20.0-50.0); MEAN CORPUSCULAR HEMOGLOBIN 28.7 pg (28.0-32.0); MEAN CORPUSCULAR VOLUME 84.8 fL (80.0-94.0); MONOCYTES % 10.8 % (2.0-8.0); PLATELET 179 x1000/uL (130-400); RED BLOOD CELL COUNT 4.33 mill/uL (4.7-6.1); RED CELL DISTRIBUTION WIDTH 14.5 % (11.6-14.6)
[2022-02-02 09:18] LABS: PROTHROMBIN TIME 10.9 sec (9.6-11.0)
[2022-02-02 09:26] LABS: CHLORIDE 105 mEq/L (98-107)
[2022-02-02 09:52] LABS: CLARITY URINE CLEAR (CLEAR); COLOR URINE YELLOW (YELLOW); KETONES URINE NEGATIVE (NEGATIVE); LEUKOCYTE ESTERASE URINE NEGATIVE (NEGATIVE); NITRITE URINE NEGATIVE (NEGATIVE); OCCULT BLOOD URINE NEGATIVE (NEGATIVE); PH URINE 5.5 (4.5-8.0); PROTEIN URINE NEGATIVE (NEGATIVE); SPECIFIC GRAVITY URINE 1.021 (1.005-1.030)
[2022-02-02] MEDS ORDERED: SODIUM BICARBONATE 4% (2.4MEQ) 5ML VIAL IV ONE (11:36)
[2022-02-02] MEDS ORDERED: LIDOCAINE HCL/PF 1% 10 MG/ML 5ML VIAL ONE (11:36)
[2022-02-02] MEDS ORDERED: CHLO25TA2 PO (13:12)
[2022-02-02] MEDS ORDERED: MULT-1146 PO (13:12)
[2022-02-02 13:56] VITALS: BP 113/75
== END 2022-02-02 13:58 | disposition home or self-care (01) ==
LOC: ER 07:39
DX: R18.8 Other ascites (principal); I10 Essential (primary) hypertension; Z20.822 Contact with and (suspected) exposure to COVID-19; Z79.899 Other long term (current) drug therapy; Z98.890 Other specified postprocedural states
CPT/HCPCS: 36415; 49083; 80053; 81003; 83690; 85025; 85610; 87426; 99285; J3490; Z7610

== ENCOUNTER 2022-02-09 07:02 | Emergency (ER) | payer MEDICAID ==
[~2022-02-09] VITALS: Ht 170.2 cm; Wt 85.0 kg
[2022-02-09 08:29] LABS: BASOPHILS % 0.6 % (0.0-2.0); EOSINOPHILS % 1.3 % (0.0-5.0); HEMATOCRIT. 37.2 % (42.0-52.0); HEMOGLOBIN. 12.6 g/dL (14.0-18.0); LYMPHOCYTES % 7.2 % (20.0-50.0); MEAN CORPUSCULAR HEMOGLOBIN 28.9 pg (28.0-32.0); MEAN CORPUSCULAR VOLUME 85.2 fL (80.0-94.0); MEAN PLATELET VOLUME 7.9 fl (7.4-10.4); NEUTROPHILS % 82.9 % (40.0-76.0); PLATELET 179 x1000/uL (130-400); RED BLOOD CELL COUNT 4.37 mill/uL (4.7-6.1); RED CELL DISTRIBUTION WIDTH 14.7 % (11.6-14.6)
[2022-02-09 08:37] LABS: CHLORIDE 103 mEq/L (98-107)
[2022-02-09 09:31] LABS: CLARITY URINE CLEAR (CLEAR); COLOR URINE YELLOW (YELLOW); KETONES URINE NEGATIVE (NEGATIVE); LEUKOCYTE ESTERASE URINE NEGATIVE (NEGATIVE); NITRITE URINE NEGATIVE (NEGATIVE); OCCULT BLOOD URINE NEGATIVE (NEGATIVE); PROTEIN URINE NEGATIVE (NEGATIVE); SPECIFIC GRAVITY URINE 1.015 (1.005-1.030)
[2022-02-09 10:20] VITALS: BP 133/91
[2022-02-09] MEDS ORDERED: LIDOCAINE HCL/PF 1% 10 MG/ML 5ML VIAL ONE (10:33)
[2022-02-09] MEDS ORDERED: SODIUM BICARBONATE 4% (2.4MEQ) 5ML VIAL IV ONE (10:33)
== END 2022-02-09 12:43 | disposition home or self-care (01) ==
LOC: ER 07:02
DX: R18.8 Other ascites (principal); K74.60 Unspecified cirrhosis of liver; I10 Essential (primary) hypertension; Z20.822 Contact with and (suspected) exposure to COVID-19; Z79.899 Other long term (current) drug therapy; Z98.890 Other specified postprocedural states
CPT/HCPCS: 36415; 49083; 80053; 81003; 85025; 85610; 87426; 99285; J3490; Z7610

== ENCOUNTER 2022-02-16 07:22 | Emergency (ER) | payer MEDICAID ==
[~2022-02-16] VITALS: Ht 170.2 cm; Wt 86.0 kg
[2022-02-16 07:29] VITALS: BP 131/87
[2022-02-16 08:37] LABS: BASOPHILS % 0.5 % (0.0-2.0); EOSINOPHILS % 1.8 % (0.0-5.0); HEMATOCRIT. 35.5 % (42.0-52.0); HEMOGLOBIN. 12.3 g/dL (14.0-18.0); LYMPHOCYTES % 7.5 % (20.0-50.0); MEAN CORPUSCULAR HEMOGLOBIN 28.7 pg (28.0-32.0); MEAN PLATELET VOLUME 7.7 fl (7.4-10.4); MONOCYTES % 11.6 % (2.0-8.0); NEUTROPHILS % 78.6 % (40.0-76.0); PLATELET 189 x1000/uL (130-400); RED BLOOD CELL COUNT 4.28 mill/uL (4.7-6.1); RED CELL DISTRIBUTION WIDTH 14.3 % (11.6-14.6)
[2022-02-16 08:38] LABS: CHLORIDE 103 mEq/L (98-107)
[2022-02-16 08:40] LABS: PROTHROMBIN TIME 10.8 sec (9.6-11.0)
[2022-02-16] MEDS ORDERED: LIDOCAINE HCL 1% 10 MG/ML 10ML VIAL ONE (10:38)
[2022-02-16] MEDS ORDERED: SODIUM BICARBONATE 4% (2.4MEQ) 5ML VIAL IV ONE (10:38)
== END 2022-02-16 13:50 | disposition home or self-care (01) ==
LOC: ER 07:22
DX: R18.8 Other ascites (principal); I10 Essential (primary) hypertension; Z20.822 Contact with and (suspected) exposure to COVID-19; Z79.899 Other long term (current) drug therapy
CPT/HCPCS: 36415; 49083; 80053; 83690; 85025; 85610; 87426; 99285; J3490; J7042; Z7610

== ENCOUNTER 2022-02-23 07:33 | Emergency (ER) | payer MEDICAID ==
[~2022-02-23] VITALS: Ht 170.2 cm; Wt 73.0 kg
[2022-02-23 08:13] LABS: BASOPHILS % 1.2 % (0.0-2.0); EOSINOPHILS % 2.1 % (0.0-5.0); HEMATOCRIT. 36.5 % (42.0-52.0); HEMOGLOBIN. 12.7 g/dL (14.0-18.0); LYMPHOCYTES % 7.5 % (20.0-50.0); MEAN CORPUSCULAR HEMOGLOBIN 28.7 pg (28.0-32.0); MEAN CORPUSCULAR VOLUME 82.6 fL (80.0-94.0); MEAN PLATELET VOLUME 7.8 fl (7.4-10.4); MONOCYTES % 11.2 % (2.0-8.0); PLATELET 199 x1000/uL (130-400); RED BLOOD CELL COUNT 4.42 mill/uL (4.7-6.1); RED CELL DISTRIBUTION WIDTH 14.2 % (11.6-14.6)
[2022-02-23] MEDS ORDERED: SODIUM BICARBONATE 4% (2.4MEQ) 5ML VIAL IV ONE (11:43)
[2022-02-23 14:57] VITALS: BP 126/79
== END 2022-02-23 14:59 | disposition home or self-care (01) ==
LOC: ER 07:33
DX: R18.8 Other ascites (principal); I10 Essential (primary) hypertension; Z20.822 Contact with and (suspected) exposure to COVID-19; Z79.899 Other long term (current) drug therapy
CPT/HCPCS: 36415; 49083; 80048; 83690; 85025; 85610; 87426; 99285; J3490; Z7610

== ENCOUNTER 2022-03-02 07:24 | Emergency (ER) | payer MEDICAID ==
[~2022-03-02] VITALS: Ht 157.5 cm; Wt 99.0 kg
[2022-03-02 07:43] VITALS: BP 136/90
[2022-03-02 08:44] LABS: HEMATOCRIT. 38.2 % (42.0-52.0); HEMOGLOBIN. 12.8 g/dL (14.0-18.0); MEAN CORPUSCULAR HEMOGLOBIN 28.6 pg (28.0-32.0); MEAN CORPUSCULAR VOLUME 85.2 fL (80.0-94.0); MEAN PLATELET VOLUME 7.7 fl (7.4-10.4); PLATELET 188 x1000/uL (130-400); RED BLOOD CELL COUNT 4.49 mill/uL (4.7-6.1)
[2022-03-02 08:47] LABS: CHLORIDE 104 mEq/L (98-107)
[2022-03-02 09:48] LABS: PLATELET ESTIMATE NORMAL
[2022-03-02] MEDS ORDERED: LIDOCAINE HCL 1% 10 MG/ML 10ML VIAL ONE (10:25)
[2022-03-02] MEDS ORDERED: SODIUM BICARBONATE 4% (2.4MEQ) 5ML VIAL IV ONE (10:26)
== END 2022-03-02 12:28 | disposition home or self-care (01) ==
LOC: ER 07:24
DX: R18.8 Other ascites (principal); I10 Essential (primary) hypertension; Z20.822 Contact with and (suspected) exposure to COVID-19; Z79.899 Other long term (current) drug therapy
CPT/HCPCS: 36415; 49083; 80053; 85025; 85610; 87426; 99285; J3490; Z7610

== ENCOUNTER 2022-03-09 07:25 | Emergency (ER) | payer MEDICAID ==
[~2022-03-09] VITALS: Ht 170.2 cm; Wt 69.0 kg
[2022-03-09 07:36] VITALS: BP 128/92
[2022-03-09 08:06] LABS: PROTHROMBIN TIME 10.8 sec (9.6-11.0)
[2022-03-09 08:20] LABS: HEMOGLOBIN 12.1 g/dL (14.0-18.0); MEAN CORPUSCULAR HEMOGLOBIN 28.7 pg (28.0-32.0); MEAN CORPUSCULAR VOLUME 85.3 fL (80.0-94.0); PLATELET 192 x1000/uL (130-400); RED BLOOD CELL COUNT 4.22 mill/uL (4.7-6.1); RED CELL DISTRIBUTION WIDTH 14.3 % (11.6-14.6)
[2022-03-09] MEDS ORDERED: SODIUM BICARBONATE 4% (2.4MEQ) 5ML VIAL IV ONE (09:25)
== END 2022-03-09 11:14 | disposition home or self-care (01) ==
LOC: ER 07:25
DX: R18.8 Other ascites (principal); K74.60 Unspecified cirrhosis of liver; I10 Essential (primary) hypertension; Z20.822 Contact with and (suspected) exposure to COVID-19; Z79.899 Other long term (current) drug therapy
CPT/HCPCS: 36415; 49083; 85027; 85610; 87426; 99284; J3490; Z7610

== ENCOUNTER 2022-03-16 07:23 | Emergency (ER) | payer MEDICAID ==
[~2022-03-16] VITALS: Ht 157.5 cm; Wt 88.0 kg
[2022-03-16 07:58] LABS: BASOPHILS % 0.8 % (0.0-2.0); EOSINOPHILS % 2.2 % (0.0-5.0); HEMATOCRIT. 34.7 % (42.0-52.0); HEMOGLOBIN. 11.8 g/dL (14.0-18.0); LYMPHOCYTES % 7.2 % (20.0-50.0); MEAN CORPUSCULAR HEMOGLOBIN 28.5 pg (28.0-32.0); MEAN PLATELET VOLUME 7.6 fl (7.4-10.4); NEUTROPHILS % 75.8 % (40.0-76.0); PLATELET 193 x1000/uL (130-400); RED BLOOD CELL COUNT 4.13 mill/uL (4.7-6.1); RED CELL DISTRIBUTION WIDTH 14.2 % (11.6-14.6)
[2022-03-16 08:09] LABS: PROTHROMBIN TIME 10.6 sec (9.6-11.0)
[2022-03-16] MEDS ORDERED: LIDOCAINE HCL 1% 10 MG/ML 10ML VIAL ONE (10:04)
[2022-03-16] MEDS ORDERED: SODIUM BICARBONATE 4% (2.4MEQ) 5ML VIAL IV ONE (10:05)
[2022-03-16 10:12] VITALS: BP 115/82
== END 2022-03-16 12:23 | disposition home or self-care (01) ==
LOC: ER 07:23
DX: R33.9 Retention of urine, unspecified (principal); Z20.822 Contact with and (suspected) exposure to COVID-19
CPT/HCPCS: 36415; 49083; 85025; 85610; 85730; 87426; 99285; J3490; Z7610

== ENCOUNTER 2022-03-23 07:22 | Emergency (ER) | payer MEDICAID ==
[~2022-03-23] VITALS: Ht 170.2 cm; Wt 84.0 kg
[2022-03-23 07:42] VITALS: BP 139/85
[2022-03-23 08:53] LABS: BASOPHILS % 0.5 % (0.0-2.0); EOSINOPHILS % 1.5 % (0.0-5.0); HEMATOCRIT. 37.1 % (42.0-52.0); HEMOGLOBIN. 12.2 g/dL (14.0-18.0); LYMPHOCYTES % 8.2 % (20.0-50.0); MEAN CORPUSCULAR HEMOGLOBIN 27.8 pg (28.0-32.0); MEAN CORPUSCULAR VOLUME 84.2 fL (80.0-94.0); MEAN PLATELET VOLUME 7.5 fl (7.4-10.4); MONOCYTES % 10.6 % (2.0-8.0); NEUTROPHILS % 79.2 % (40.0-76.0); PLATELET 223 x1000/uL (130-400); RED CELL DISTRIBUTION WIDTH 14.3 % (11.6-14.6)
[2022-03-23 09:01] LABS: PROTHROMBIN TIME 10.5 sec (9.6-11.0)
[2022-03-23 09:06] LABS: CHLORIDE 106 mEq/L (98-107)
[2022-03-23] MEDS ORDERED: LIDOCAINE HCL 1% 10 MG/ML 10ML VIAL ONE (09:11)
[2022-03-23] MEDS ORDERED: SODIUM BICARBONATE 4% (2.4MEQ) 5ML VIAL IV ONE (09:12)
== END 2022-03-23 13:42 | disposition home or self-care (01) ==
LOC: ER 07:22
DX: R18.8 Other ascites (principal); I10 Essential (primary) hypertension; Z20.822 Contact with and (suspected) exposure to COVID-19; Z79.899 Other long term (current) drug therapy; Z98.890 Other specified postprocedural states
CPT/HCPCS: 36415; 49083; 80053; 85025; 85610; 87426; 99285; J3490; Z7610

== ENCOUNTER 2022-03-30 01:29 | Inpatient (IN) | payer MEDICAID ==
[~2022-03-30] VITALS: Ht 162.6 cm; Wt 91.0 kg
[2022-03-30] MEDS ORDERED: MORPHINE SULFATE 4 MG/ML CPJ (NOT FOR IM USE) IV ONE (02:45)
[2022-03-30 04:19] LABS: HEMATOCRIT. 36.7 % (42.0-52.0); HEMOGLOBIN. 12.3 g/dL (14.0-18.0); MEAN CORPUSCULAR HEMOGLOBIN 28.2 pg (28.0-32.0); MEAN PLATELET VOLUME 8.3 fl (7.4-10.4); PLATELET 214 x1000/uL (130-400); RED BLOOD CELL COUNT 4.37 mill/uL (4.7-6.1); RED CELL DISTRIBUTION WIDTH 14.3 % (11.6-14.6)
[2022-03-30 04:27] LABS: CHLORIDE 107 mEq/L (98-107)
[2022-03-30] MEDS ORDERED: GUAIFENESIN 200MG/10ML SUGAR FREE UDC PO PRN (07:00)
[2022-03-30] MEDS ORDERED: CLONIDINE 0.1MG TABLET PO PRN (07:00)
[2022-03-30] MEDS ORDERED: NITROGLYCERIN 0.4MG TABLET SL SL PRN (07:00)
[2022-03-30] MEDS ORDERED: ACETAMINOPHEN 325MG TABLET PO PRN ×2 (07:00)
[2022-03-30] MEDS ORDERED: DOCUSATE SODIUM 100MG CAPSULE PO PRN (07:00)
[2022-03-30] MEDS ORDERED: MAGNESIUM/ALUMINUM HYDROXIDE/SIMETHICONE 30ML UDC PO PRN (07:00)
[2022-03-30] MEDS ORDERED: IPRATROPIUM/ALBUTEROL 0.5-3(2.5)MG/3ML NEB NEB PRN (07:00)
[2022-03-30] MEDS ORDERED: ZOLPIDEM TARTRATE 5MG TABLET PO PRN (07:00)
[2022-03-30] MEDS ORDERED: KETOROLAC 15MG/ML VIAL IV PRN (07:00)
[2022-03-30] MEDS ORDERED: ONDANSETRON HCL 4MG/2ML INJ IV PRN (07:00)
[2022-03-30 07:34] LABS: ETHANOL BLOOD < 10 mg/dL; T4 FREE 1.09 ng/dL (0.76-1.46); TOTAL IRON BINDING CAPACITY 407 ug/dL (250-450)
[2022-03-30 07:41] LABS: PLATELET ESTIMATE NORMAL
[2022-03-30 07:53] LABS: FOLIC ACID (FOLATE) SERUM 10.3 ng/mL (>5.38)
[2022-03-30 08:51] LABS: PARTIAL THROMBOPLASTIN TIME 30.4 sec (23.4-31.0); PROTHROMBIN TIME 11.2 sec (9.6-11.0)
[2022-03-30] MEDS ORDERED: SPIRONOLACTONE 25MG TABLET PO SCH (09:00)
[2022-03-30] MEDS ORDERED: FAMOTIDINE 20MG TABLET PO SCH (09:00)
[2022-03-30] MEDS ORDERED: FUROSEMIDE 40MG/4ML VIAL IVP SCH (09:00)
[2022-03-30 09:04] VITALS: BP 146/93
[2022-03-30] MEDS ORDERED: SODIUM BICARBONATE 4% (2.4MEQ) 5ML VIAL IV ONE (10:01)
[2022-03-30] MEDS ORDERED: LIDOCAINE HCL 1% 20ML VIAL (Pyxis) INJ ONE (10:01)
[2022-03-30 12:12] LABS: CLARITY URINE CLEAR (CLEAR); COLOR URINE YELLOW (YELLOW); KETONES URINE NEGATIVE (NEGATIVE); LEUKOCYTE ESTERASE URINE NEGATIVE (NEGATIVE); NITRITE URINE NEGATIVE (NEGATIVE); OCCULT BLOOD URINE NEGATIVE (NEGATIVE); PROTEIN URINE NEGATIVE (NEGATIVE); SPECIFIC GRAVITY URINE 1.012 (1.005-1.030); UROBILINOGEN URINE 0.2 E.U./dL (0.2-1.0)
[2022-03-30 12:36] LABS: *AMPHETAMINES SCREEN URINE NEGATIVE (NEGATIVE); *BARBITURATES SCREEN URINE NEGATIVE (NEGATIVE); *BENZODIAZEPINES SCREEN URINE NEGATIVE (NEGATIVE); *COCAINE SCREEN URINE NEGATIVE (NEGATIVE); CANNABINOID URINE SCREEN NEGATIVE (NEGATIVE); METHADONE URINE SCREEN NEGATIVE (NEGATIVE); OPIATES URINE SCREEN PRESUMTIVE POSITIVE (NEGATIVE); PHENCYCLIDINE URINE SCREEN NEGATIVE (NEGATIVE)
== END 2022-03-30 12:10 | disposition left against medical advice (07) ==
LOC: ER 01:29 → 6EST 06:01 → ENRESERV 10:43
PROVIDERS: ADMIT Internal Medicine; ATTEND Internal Medicine
PROC: 0W9G3ZZ Drainage of Peritoneal Cavity, Percutaneous Approach (ICD-10-PCS; principal; 2022-03-30)
DX: K74.60 Unspecified cirrhosis of liver (principal); N17.0 Acute kidney failure with tubular necrosis; K76.7 Hepatorenal syndrome; E43 Unspecified severe protein-calorie malnutrition; R18.8 Other ascites; E83.51 Hypocalcemia; E87.1 Hypo-osmolality and hyponatremia; D63.8 Anemia in other chronic diseases classified elsewhere; Z20.822 Contact with and (suspected) exposure to COVID-19; Z53.29 Procedure and treatment not carried out because of patient's decision for other reasons; I10 Essential (primary) hypertension; F10.10 Alcohol abuse, uncomplicated; Y90.9 Presence of alcohol in blood, level not specified; Z79.84 Long term (current) use of oral hypoglycemic drugs; Z79.899 Other long term (current) drug therapy; Z79.1 Long term (current) use of non-steroidal anti-inflammatories (NSAID); Z82.49 Family history of ischemic heart disease and other diseases of the circulatory system; Z68.34 Body mass index [BMI] 34.0-34.9, adult
CPT/HCPCS: 36415; 49083; 74176; 80053; 80305; 80320; 81003; 82140; 82607; 82746; 83036; 83540; 83550; 84439; 84443; 85025; 87426; 93970; 99285; J1885; J1940; J2270; J3490; G0480

== ENCOUNTER 2022-04-06 07:04 | Emergency (ER) | payer MEDICAID ==
[~2022-04-06] VITALS: Ht 170.2 cm; Wt 77.0 kg
[2022-04-06 07:16] VITALS: BP 169/97
[2022-04-06 08:05] LABS: HEMATOCRIT. 35.3 % (42.0-52.0); MEAN CORPUSCULAR HEMOGLOBIN 28.8 pg (28.0-32.0); MEAN CORPUSCULAR VOLUME 84.8 fL (80.0-94.0); PLATELET 329 x1000/uL (130-400); RED BLOOD CELL COUNT 4.16 mill/uL (4.7-6.1); RED CELL DISTRIBUTION WIDTH 14.2 % (11.6-14.6)
[2022-04-06 08:13] LABS: CHLORIDE 103 mEq/L (98-107)
[2022-04-06 08:17] LABS: INR 1.1; PARTIAL THROMBOPLASTIN TIME 31.3 sec (23.4-31.0); PROTHROMBIN TIME 11.3 sec (9.6-11.0)
[2022-04-06 08:31] LABS: PLATELET ESTIMATE NORMAL
[2022-04-06] MEDS ORDERED: LIDOCAINE HCL 1% 10 MG/ML 10ML VIAL ONE (08:57)
[2022-04-06] MEDS ORDERED: SODIUM BICARBONATE 4% (2.4MEQ) 5ML VIAL IV ONE (08:58)
[2022-04-06] MEDS ORDERED: FURO40TA5 MT (11:21)
[2022-04-06] MEDS ORDERED: CHLO25TA2 MT (11:21)
[2022-04-12] MEDS ORDERED: THIA100T88 PO (10:22)
== END 2022-04-06 11:59 | disposition home or self-care (01) ==
LOC: ER 07:04
DX: R18.8 Other ascites (principal); I10 Essential (primary) hypertension; Z20.822 Contact with and (suspected) exposure to COVID-19; Z79.899 Other long term (current) drug therapy; Z98.890 Other specified postprocedural states
CPT/HCPCS: 36415; 49083; 80053; 85025; 85610; 85730; 87426; 93005; 99285; C9803; J3490; Z7610